=== PATIENT | female | born 1950 | race Caucasian/White ===

== ENCOUNTER 2017-07-16 07:11 | Inpatient (IN) ==
[2017-07-16] MEDS ORDERED: Lidocaine -MPF 4% 5 ML AMPUL ONE (07:25)
[2017-07-16] MEDS ORDERED: Dexamethasone 4 MG/ML VIAL ONE (07:26)
[2017-07-16] MEDS ORDERED: Ondansetron 4 MG/2 ML VIAL ONE (07:26)
[2017-07-16] MEDS ORDERED: Lidocaine -MPF 2% 2 ML VIAL ONE (07:26)
[2017-07-16] MEDS ORDERED: Ethanol\\Acetic Acid\\Na Ace\\Ben 1,000 ML IRRIG.SOLN IR ONE (07:26)
[2017-07-16] MEDS ORDERED: *HR* Succinylcholine 200 MG/10 ML VIAL IVP ONE (07:26)
[2017-07-16] MEDS ORDERED: *HR* FentaNYL (PF) 100 MCG/2 ML VIAL ONE (07:27)
[2017-07-16] MEDS ORDERED: *HR* Midazolam HCl 2 MG/2 ML VIAL ONE (07:27)
[2017-07-16] MEDS ORDERED: *HR* Propofol 200 MG/20 ML VIAL IVP ONE (07:27)
[2017-07-16] MEDS ORDERED: CeFAZolin Syr 2,000MG/20 ML 2,000 MG/20 ML SYRINGE IVPB ONE (07:30)
[2017-07-16] MEDS ORDERED: Albuterol 2.5 MG/3 ML NEBULIZER IH ONE (07:30)
--- NOTE | 2017-07-16 07:41 | Anesthesia Evaluation PreOp ---
Date of Encounter: 07/16/17 Time of Encounter: 07:39 - Past History Planned Operation: Left Total Hip Arthroplasty Cardiac History: Denies any Significant Hx (arthritis, asthma, CVA (History of stroke without residual deficit. ), diabetes, hyperlipidemia, hypertension, myocardial infarction (2000 and 2011), other (VETO on CPAP) Psychiatric history: no psych history - Past Surgical History Surgical History: angioplasty/stent ( Stent x1 in 2000), appendectomy, (x2), cholecystectomy, hysterectomy, knee replacement (Right and Left), other (Open-heart repair for hole in heart and unknown valve.)), DC (2000, 2011), HTN, Hyperlipidemia, Cardiac Surgery ( PFO repair, Valve replacement), Cardiac Stent (2000) Pulmonary History: Asthma, VETO Dx (CPAP setting unknown) FOOD AND BEVERAGE MANAGER History: CVA (2008 slight RUE weakness), TIA (02/2017), Other (Hx suicide attempt, panic attacks) Other Medical History: Diabetes Type II Anesthesia History: No Prior Anesthetic Complications, Past Anesthesia (Cardiac Stent, PFO repair, c/sx2, Left TKR, CTR, Elbow, R. TKR, CEA 2008, EGD, Hernia, Appy, GB, Nose sx) : No Alcohol Use: none Drug use: none Medications and Allergies Albuterol Sulfate 2.5 mg IH Q6H PRN 07/16/17 [History] Albuterol Sulfate [Ventolin Hfa] 2 puff IH Q4H PRN 07/16/17 [History] Amlodipine Besylate [Amlodipine Besylate] 10 mg PO DAILY 07/16/17 [History] Aspirin [Lo-Dose Aspirin EC] 81 mg PO DAILY 07/16/17 [History] Atorvastatin Calcium 80 mg PO HS 07/16/17 [History] Budesonide/Formoterol 160/4.5 [Symbicort 160/4.5] 2 puff IH BID 07/16/17 [ History] Carvedilol [Coreg] 25 mg PO BID 07/16/17 [History] Clopidogrel [Plavix] 75 mg PO DAILY 07/16/17 [History] Dulaglutide [Trulicity] 0.75 mg SQ TH 07/16/17 [History] Duloxetine HCl [Cymbalta] 60 mg PO BID 07/16/17 [History] Famotidine [Pepcid] 40 mg PO HS 07/16/17 [History] Gabapentin [Neurontin] 1,200 mg PO BID 07/16/17 [History] Insulin ASPART [Novolog Flexpen] 0 - 10 unit SQ TIDWM 07/16/17 [History] Insulin Degludec [Tresiba Flextouch U-200] 65 unit SQ HS 07/16/17 [History] Lisinopril [Zestril] 20 mg PO DAILY 07/16/17 [History] Metformin HCl [Metformin HCl ER] 2,000 mg PO DAILY 07/16/17 [History] Montelukast [Singulair] 10 mg PO HS 07/16/17 [History] Tiotropium [place] [Spiriva Respimat] 2 puff PO DAILY 07/16/17 [History] hydroCHLOROthiazide [Hydrochlorothiazide] 50 mg PO DAILY 07/16/17 [History] lamoTRIgine [Lamictal] 50 mg PO DAILY 07/16/17 [History] rOPINIRole [Requip] 1 mg PO HS 07/16/17 [History] 3 Allergy/AdvReac Type Severity Reaction Status Date / Time aloe vera Allergy Rash Verified 04/10/15 17:37 codeine Allergy Hallucinati Verified 04/10/15 17:37 ng sertraline [From Zoloft] Allergy Rash Verified 04/10/15 17:37 Sulfa (Sulfonamide Allergy Rash Verified 04/10/15 17:37 Antibiotics) fluoxetine AdvReac Itching Verified 04/10/15 17:37 promethazine [From Phenergan] AdvReac Nausea Verified 04/10/15 17:37 TAPE Allergy Blister Uncoded 08/05/15 13:18 - Meds/Allergy Pre-op Review Medications Reviewed: Yes Allergies Reviewed: Yes Beta Blockers on Current Med List: Yes If Beta Blockers taken, Date/Time (Last Dose taken): 05:00 07/16/2017 Anesthesia Results - Labs 07/16/17 08:34 Echocardiogram Name: Liz Genesismagdalena Almanza Date of Study: 12/23/2016 EV/EV echocardiogram Impressions: LVEF 50-55%. Normal LV chamber size, wall thickness and function. Atypical septal motion consistent with bundle branch block. Mild left ventricular diastolic dysfunction. Normal right ventricular structure and function. No evidence of PFO with agitated saline contrast. No evidence of pulmonary hypertension. No significant valvular dysfunction. Stress 04/11/15 EF-60% No ischemia Laboratory Tests 02/05/16 09/15/16 07/16/17 14:22 11:23 08:34 WBC 7.2 Hgb 11.5 Hct 34.8 L Plt Count 251 INR 1.0 Sodium 134 L Potassium 4.1 Chloride 96 L Carbon Dioxide 28 BUN 11 Creatinine 0.75 - Imaging EKG: report reviewed (AF, PVC, RBBB, Poss old septal DC) Anesthesia Exam O2 Sat Height 1.52 m Height 1.52 m Height 1.52 m Weight 87.09 kg Weight 87.09 kg Weight 87.09 kg O2 Sat by Pulse Oximetry 97 O2 Sat by Pulse Oximetry 97 Vital Signs Temp Pulse Resp BP Pulse Ox 97.7 F 70 18 130/69 97 07/16/17 07:39 07/16/17 07:39 07/16/17 07:39 07/16/17 07:39 07/16/17 07:39 Blood glucose: 81 NPO (# of Hours): > 8 hrs Pain Scale: 0 - HEENT Pupil (Motor): Pupils equal, EOMI Mallampati: I Teeth: Poor dentition Oral Opening: Greater than 3 - FOOD AND BEVERAGE MANAGER LOC: Oriented FOOD AND BEVERAGE MANAGER Motor: Normal LUE, Normal RLE, Normal LLE, Normal Face, Deficit RUE (slight weakness from CVA 2008) FOOD AND BEVERAGE MANAGER Sensory: Normal: RUE, LUE, RLE, LLE, Face - Cardiac Rhythm: Irregular Murmur: None JVD: No Carotid Bruit: No - Pulmonary Breath Sounds: bilateral Clear Respiratory Effort: Symmetrical - Additional Findings Patient took plavix this morning and ASA 4/26 Anesthesia Assess/Plan ASA Score: 4 Modified Rena Scale for Level of Consciousness: Cooperative, oriented, and tranquil Anesthetic Plan: General Autologous Blood: Yes Monitoring Plan: Standard Monitors Recovery Plan: PACU
[2017-07-16] MEDS: Ringers Solution, Lactated 1,000 ML IVC SCH ×2 (07:52→10:57)
--- NOTE | 2017-07-16 08:33 | History & Physical Report ---
Date of Encounter: 07/16/17 Time of Encounter: 08:33 24 Hour HP Update - Instructions Instructions: If the History and Physical is less than 30 days old and was completed prior to A.M. admission and or procedure and has NOT been updated on calendar day of procedure please complete this update prior to performing procedure. - Update Patient reports changes in Medical Condition: No Changes in examination, assessment, or condition: No Changes in Medication: No Preop tests/diagnostics Reviewed: Yes Surgery Remains Indicated: Yes Consent for Planned Operative Procedure(s) Verified: Yes - Pre-Operative Checklist Preoperative Checklist Indicated: No Prophylactic Antibiotic Ordered: Yes Is VTE Prophylaxis Indicated?: Yes
[2017-07-16 08:55] LABS: Basophils % 0.3 %; Eosinophils # 0.1 K/mcL (0.0-0.6); Eosinophils % 1.9 %; Hematocrit 34.8 % (35.3-44.9); Hemoglobin 11.5 g/dL (11.5-15.4); Immature Granulocytes % 0.3 % (0-4); Lymphocytes # 2.7 K/mcL (0.6-4.6); Lymphocytes % 36.8 %; Mean Corpuscular Volume 87.7 fL (83.0-100.0); Mean Platelet Volume 9.3 fL (9.4-12.4); Monocytes # 0.8 K/mcL (0.0-1.3); Monocytes % 10.7 %; Neutrophils # 3.6 K/mcL (1.6-8.9); Platelet Count 251 K/mcL (140-400); Red Blood Count 3.97 M/mcL (3.82-4.97); Red Cell Distribution Width 13.2 % (11.5-14.5)
[2017-07-16 09:00] LABS: INR 1.1; Prothrombin Time 11.5 Seconds (9.4-12.1)
[2017-07-16] MEDS ORDERED: Acetaminophen IV 1,000 MG/100 ML INFUS..BTL ONE (09:05)
[2017-07-16 09:12] LABS: BUN/Creatinine Ratio 26 (6-26); Blood Urea Nitrogen 16 mg/dL (8-23); Calcium 8.7 mg/dL (8.6-10.3); Carbon Dioxide 29 mEq/L (23-29); Chloride 100 mEq/L (98-107); Glucose 78 mg/dL (70-105); Osmolality,Calculated 280 (280-300); Potassium 4.1 mEq/L (3.5-5.1); Sodium 135 mEq/L (136-145); eGFR For African Americans > 60 (> 60); eGFR For Non-African Americans > 60 (> 60)
--- NOTE | 2017-07-16 09:32 | Discharge Summary ---
Orders not resulted at time of discharge: Pending orders 07/16/17 08:32 Hemoglobin and Hematocrit [HEME] Routine 07/16/17 09:23 Left Hip [XR hip complete LT] [XR] Routine Date of Encounter: 07/19/17 Time of Encounter: 06:51 - Discharge Diagnosis (1) Diabetes Priority: Secondary Status: Chronic Qualifiers: Diabetes mellitus type: type 2 Diabetes mellitus drop wirer insulin use: unspecified fdc insulin use status Diabetes mellitus complication status : with unspecified complications Qualified Code(s): E11.8 - Type 2 diabetes mellitus with unspecified complications (2) CAD (coronary artery disease) Priority: Secondary Status: Chronic Qualifiers: Coronary Disease-Associated Artery/Lesion type: unspecified vessel or lesion type [place] vs. transplanted heart: [place] heart Associated angina: angina presence unspecified Qualified Code(s): I25.10 - Atherosclerotic heart disease of [place] coronary artery without angina pectoris (3) VETO (obstructive sleep apnea) Priority: Secondary Status: Chronic (4) Hypertension Priority: Secondary Status: Chronic Qualifiers: Hypertension type: unspecified Qualified Code(s): I10 - Essential (primary ) hypertension (5) Hyperlipidemia Priority: Secondary Status: Chronic Qualifiers: Hyperlipidemia type: unspecified Qualified Code(s): E78.5 - Hyperlipidemia , unspecified (6) DVT prophylaxis Priority: Secondary Status: Acute (7) History of CVA (cerebrovascular accident) Priority: Secondary Status: Chronic (8) Arthritis of left hip Priority: Primary Status: Chronic (9) Status post total hip replacement, left Priority: Primary Status: Acute (10) Asthma Priority: Secondary Status: Chronic Qualifiers: Asthma severity: unspecified severity Asthma persistence: unspecified Asthma complication type: uncomplicated Qualified Code(s): J45.909 - Unspecified asthma, uncomplicated (11) Acute blood loss anemia Priority: Primary Status: Acute - Hospital Course Hospital course: Ms. Almanza is a 67 year old female Status post total hip replacement. Patient with acute blood loss anemia requiring transfusion. The patient had an uneventful postoperative course. They received antibiotics and physical therapy and were discharged in stable condition. There will follow -up in the office in 2 weeks. - Time Spent with Patient Total time spent providing and/or coordinating discharge services: - Discharge Medications Home Medications: Albuterol Sulfate 2.5 mg IH Q6H PRN 07/16/17 [History] Albuterol Sulfate [Ventolin Hfa] 2 puff IH Q4H PRN 07/16/17 [History] Amlodipine Besylate 10 mg PO DAILY 07/16/17 [History] Aspirin [Lo-Dose Aspirin EC] 81 mg PO DAILY 07/16/17 [History] Atorvastatin Calcium 80 mg PO HS 07/16/17 [History] Budesonide/Formoterol 160/4.5 [Symbicort 160/4.5] 2 puff IH BID 07/16/17 [ History] Carvedilol [Coreg] 25 mg PO BID 07/16/17 [History] Clopidogrel [Plavix] 75 mg PO DAILY 07/16/17 [History] Dulaglutide [Trulicity] 0.75 mg SQ TH 07/16/17 [History] Duloxetine HCl [Cymbalta] 60 mg PO BID 07/16/17 [History] Famotidine [Pepcid] 40 mg PO HS 07/16/17 [History] Gabapentin [Neurontin] 1,200 mg PO BID 07/16/17 [History] Insulin ASPART [Novolog Flexpen] 0 - 10 unit SQ TIDWM 07/16/17 [History] Insulin Degludec [Tresiba Flextouch U-200] 65 unit SQ HS 07/16/17 [History] Lisinopril [Zestril] 20 mg PO DAILY 07/16/17 [History] Metformin HCl [Metformin HCl ER] 2,000 mg PO DAILY 07/16/17 [History] Montelukast [Singulair] 10 mg PO HS 07/16/17 [History] OxyCODONE Immed Rel [Roxicodone 5 MG] 5 mg PO Q4HR PRN 5 Days #20 tablet [Rx] Tiotropium [place] [Spiriva Respimat] 2 puff PO DAILY 07/16/17 [History] hydroCHLOROthiazide [Hydrochlorothiazide] 50 mg PO DAILY 07/16/17 [History] lamoTRIgine [Lamictal] 50 mg PO DAILY 07/16/17 [History] rOPINIRole [Requip] 1 mg PO HS 07/16/17 [History] Allergies/Adverse Reactions: 3 Allergy/AdvReac Type Severity Reaction Status Date / Time aloe vera Allergy Rash Verified 04/10/15 17:37 codeine Allergy Hallucinati Verified 04/10/15 17:37 ng sertraline [From Zoloft] Allergy Rash Verified 04/10/15 17:37 Sulfa (Sulfonamide Allergy Rash Verified 04/10/15 17:37 Antibiotics) fluoxetine AdvReac Itching Verified 04/10/15 17:37 promethazine [From Phenergan] AdvReac Nausea Verified 04/10/15 17:37 TAPE Allergy Blister Uncoded 08/05/15 13:18 Primary care physician: Denise Scanlon MD Labs on day of discharge: Labs from last 24 hours 07/16/17 07/16/17 07/16/17 08:34 08:34 08:34 WBC 7.2 RBC 3.97 Hgb 11.5 Hct 34.8 L MCV 87.7 MCH 29.0 MCHC 33.0 RDW 13.2 Plt Count 251 MPV 9.3 L Immature Gran % 0.3 Seg Neutrophils % 50.0 Lymphocytes % 36.8 Monocytes % 10.7 Eosinophils % 1.9 Basophils % 0.3 Neutrophils # 3.6 Lymphocytes # 2.7 Monocytes # 0.8 Eosinophils # 0.1 Basophils # 0.0 PT 11.5 INR 1.1 Sodium 135 L Potassium 4.1 Chloride 100 Carbon Dioxide 29 BUN 16 Creatinine 0.61 Est GFR ( Amer) > 60 Est GFR (Non-Af Amer) > 60 BUN/Creatinine Ratio 26 Glucose 78 Calculated Osmolality 280 Calcium 8.7 - Patient Status Disposition: Transfer Inpatient Rehab Fac Condition: Good Functional capacity at discharge: uses cane/walker Overall status at discharge: patient is progressing back to baseline - Discharge Instructions Follow Up With: Denise Scanlon MD [Primary Care Provider] -
[2017-07-16] MEDS ORDERED: *HR* Phenylephrine 10 MG/ML VIAL ONE (10:27)
[2017-07-16] MEDS ORDERED: *HR* HYDROmorphone (PF) 1 MG/ML SYRINGE IVP PRN (10:42)
[2017-07-16] MEDS ORDERED: *HR* Labetalol 20 MG/4 ML SYRINGE IVP PRN (10:42)
[2017-07-16] MEDS ORDERED: Ondansetron 4 MG/2 ML VIAL IVP ONE (10:42)
[2017-07-16] MEDS ORDERED: Dexamethasone 4 MG/ML VIAL IVP ONE (10:42)
--- NOTE | 2017-07-16 11:32 | Orthopedic Operative Note ---
Date of procedure: 07/16/17 Pre-op diagnosis: Left hip arthritis Post-op diagnosis: same Procedure: Procedure: Left Total Hip Replacment robotic-assisted Estimated blood loss: 200 cc Hardware: Metal and polyethylene replacement. Omar DM Cup: 48 cup Femoral 7 size stem Head: +3/22 head with Charis Procedural Notes: Grade 4 arthritic changes femoral head acetabular socket, procedure performed with robotic assistance. Patient 3 mm longer operative side as measured by CT Operative procedure: The patient was brought to the operating room and placed on the operating room table. After general anesthesia was administered the patient was placed in the lateral decubitus position with the operative leg up. All pressure points were padded appropriately and the head was stabilized in the neutral position. The operative extremity was prepped and draped in the sterile surgical fashion patient received IV antibiotic prior to skin incision. 3 Steinmann pins were placed in the iliac crest 3 cm proximal to the anterior superior iliac spine this was for the robotic-assisted sensor. This was done through a small 2 cm incision. A standard posterior approach is made to the operative hip, the incision was made through the skin and subcutaneous tissue hemostasis was obtained with Bovie cautery. Using careful sharp dissection the fascia was identified and incised exposing the external rotators. The femoral checkpoint was placed leg length was measured at this time utilizing robotic assistance. The external rotators were released off the greater trochanter and tagged with # 2 FiberWire suture. The capsule was T'd open and the hip was brought into internal rotation. Patient noted to have grade 4 arthritic changes femoral head. The femoral neck cut was made at the appropriate level roughly Xmm proximal to the lesser trochanter aced on preoperative templating. An anterior capsulotomy was performed for the anterior retractor. Soft tissues removed from the acetabulum. Patient noted to have grade 4 arthritic changes acetabulum. The acetabulum checkpoint was placed confirmed. The acetabulum was then mapped with robotic assistance. Based on the preoperative plan the acetabulum was reamed in one step with a 47 reamer. The 48 acetabulum was impacted with robotic assistance and 39 degrees of abduction and 21 degrees of anteversion. The hip was brought back in to internal rotation and prepared with the dry box tender followed by the canal finder followed by the reaming process to a size 7/ 8 broaching process in 20 degrees anteversion. It was broached up to the appropriate size 7. Trial reduction revealed leg lengths close to normal. The femoral implant was impacted in place in 20 degrees of anteversion. Trial reduction found the hip to be stable with 3 head and Charis. The trials were removed and the real implants were impacted in place. The hip was reduced, patient had robotic confirmed leg length of 3 mm longer than the contralateral side. The hip had excellent stability with forward flexion to 90 degrees adduction of 30 degrees and internal rotation of 60 degrees. The hip had no shuck. The hips after 2 minutes with a antibacterial solution. It was irrigated out with 2 L of pulse irrigation. The checkpoints were removed, Steinmann pins were removed. The deep tissue was irrigated and closed deep with #1 PDS suture superficially with 0 PDS suture and skin was closed with Dermabond and zip tie. The patient was placed in a sterile dressing and abduction pillow. The patient was extubated and transferred to the recovery room in stable condition. Anesthesia: GETA Surgeon: Musa Armando Was there an customer relations assistant present: No Estimated blood loss (cc): 200 Condition: stable Disposition: PACU
--- NOTE | 2017-07-16 12:00 | Anesthesia Evaluation Post Op ---
Date of Encounter: 07/16/17 Time of Encounter: 11:58 - Vital Signs Vital Signs: Vital Signs/O2 Sat, Most Current Temp Pulse Resp BP Pulse Ox 97.2 F L 90 14 166/80 95 07/16/17 11:34 07/16/17 11:54 07/16/17 11:54 07/16/17 11:54 07/16/17 11:54 - Lungs Lungs: Clear Ascult./Percussion - Airway Airway: Non-obstructed - Cardiovascular Regular Rate - Mental Status Mental Status: Alert & Oriented, Answers Appropriately - Pain Pain Scale: 0 Pain Scale used: Numeric (1 - 10) - Nausea Vomiting Nausea Vomiting: Present - Hydration Hydration: Tolerates oral liquids, Has not voided - Discharge PostOp Status: Transfer Patient to floor
[2017-07-16] MEDS ORDERED: Temazepam 15 MG CAPSULE PO PRN (12:20)
[2017-07-16] MEDS ORDERED: Naloxone 0.4 MG/ML INJ IVP PRN (12:20)
[2017-07-16] MEDS ORDERED: Ondansetron 4 MG/2 ML VIAL IVP PRN (12:20)
[2017-07-16] MEDS ORDERED: MOM Conc 10 ML UD.LIQ PO PRN (12:20)
[2017-07-16] MEDS ORDERED: Sennosides 8.6 MG TABLET PO PRN (12:20)
[2017-07-16] MEDS ORDERED: Ringers Solution, Lactated 1,000 ML IVC SCH ×2 (12:20→16:39)
[2017-07-16] MEDS: *HR* OxyCODONE/APAP 5/325 TABLET PO PRN ×2 (12:53→20:58)
[2017-07-16 13:07] LABS: Hematocrit 32.3 % (35.3-44.9); Hemoglobin 10.5 g/dL (11.5-15.4)
--- NOTE | 2017-07-16 13:26 | Physician Discharge Referral ---
ExtendedCare Referral Info Transfer To: [facility] Provider in Charge: Provider in Charge after Transfer: PCP Institutional Level of Care: Skilled - Diagnosis (1) CAD (coronary artery disease) Priority: Primary Status: Chronic (2) Diabetes Priority: Primary Status: Chronic (3) VETO (obstructive sleep apnea) Status: Chronic (4) Hypertension Status: Chronic (5) Hyperlipidemia Status: Chronic (6) Asthma Status: Chronic (7) History of CVA (cerebrovascular accident) Status: Chronic (8) Arthritis of left hip Status: Chronic (9) Status post total hip replacement, left Status: Acute Expected Duration of Placement: < 30 days - Transfer Medications Home Medications: Albuterol Sulfate 2.5 mg IH Q6H PRN 07/16/17 [History] Albuterol Sulfate [Ventolin Hfa] 2 puff IH Q4H PRN 07/16/17 [History] Amlodipine Besylate 10 mg PO DAILY 07/16/17 [History] Aspirin [Lo-Dose Aspirin EC] 81 mg PO DAILY 07/16/17 [History] Atorvastatin Calcium 80 mg PO HS 07/16/17 [History] Budesonide/Formoterol 160/4.5 [Symbicort 160/4.5] 2 puff IH BID 07/16/17 [ History] Carvedilol [Coreg] 25 mg PO BID 07/16/17 [History] Clopidogrel [Plavix] 75 mg PO DAILY 07/16/17 [History] Dulaglutide [Trulicity] 0.75 mg SQ TH 07/16/17 [History] Duloxetine HCl [Cymbalta] 60 mg PO BID 07/16/17 [History] Famotidine [Pepcid] 40 mg PO HS 07/16/17 [History] Gabapentin [Neurontin] 1,200 mg PO BID 07/16/17 [History] Insulin ASPART [Novolog Flexpen] 0 - 10 unit SQ TIDWM 07/16/17 [History] Insulin Degludec [Tresiba Flextouch U-200] 65 unit SQ HS 07/16/17 [History] Lisinopril [Zestril] 20 mg PO DAILY 07/16/17 [History] Metformin HCl [Metformin HCl ER] 2,000 mg PO DAILY 07/16/17 [History] Montelukast [Singulair] 10 mg PO HS 07/16/17 [History] OxyCODONE Immed Rel [Roxicodone 5 MG] 5 mg PO Q4HR PRN 5 Days #20 tablet [Rx] Tiotropium [place] [Spiriva Respimat] 2 puff PO DAILY 07/16/17 [History] hydroCHLOROthiazide [Hydrochlorothiazide] 50 mg PO DAILY 07/16/17 [History] lamoTRIgine [Lamictal] 50 mg PO DAILY 07/16/17 [History] rOPINIRole [Requip] 1 mg PO HS 07/16/17 [History] Allergies/Adverse Reactions: 3 Allergy/AdvReac Type Severity Reaction Status Date / Time aloe vera Allergy Rash Verified 04/10/15 17:37 codeine Allergy Hallucinati Verified 04/10/15 17:37 ng sertraline [From Zoloft] Allergy Rash Verified 04/10/15 17:37 Sulfa (Sulfonamide Allergy Rash Verified 04/10/15 17:37 Antibiotics) fluoxetine AdvReac Itching Verified 04/10/15 17:37 promethazine [From Phenergan] AdvReac Nausea Verified 04/10/15 17:37 TAPE Allergy Blister Uncoded 08/05/15 13:18 - Respiratory Orders None Smoking Cessation: Smoking cessation has been advised. For more information, call the [place] Tobacco Quit Line at 9-622-ZSLH-NOW. - Mobility Orders Chair, Ambulate - Rehabiliation Orders Rehab Potential: Good Rehab Orders: ROM Exercises, Evaluation for Physical Therapy, Evaluation for Occupational Therapy - Treatments Skin tear care topically daily PRN per policy List/Other: Opsite dressing, leave intact until first post-operative visit. If dressing becomes >50% saturated, contact office, remove dressing and place appropriate dressing in its place. Do not allow for dressing to get wet. Zipline/Nichelle in place, plan to remove at post-operative day #14-16. Total Joint Precautions x 6 weeks Apply cold therapy wrap 3-6x/day for 20 minutes at a time. Encourage ambulation throughout the day Use Incentive spirometer 10x/hour. Elevate affected extremity above heart as tolerated. Brace: Wear hip abductor brace at night x 6 weeks.~ - Diet Orders Regular, Cardiac CERTIFICATION: I certify that the transfer of the above named patient to an Extended Care Facility is necessary for the continuing treatment of the diagnosis listed. The above information is true and accurate reflection of patient's current condition. Confidential - Redisclosure prohibited without a patient's written consent.
--- NOTE | 2017-07-16 13:32 | Physician Discharge Referral ---
Home Health/Hosp Referral Info Provider in Charge Post Discharge: PCP - Diagnosis (1) CAD (coronary artery disease) Priority: Primary Status: Chronic (2) Diabetes Priority: Primary Status: Chronic (3) VETO (obstructive sleep apnea) Status: Chronic (4) Hypertension Status: Chronic (5) Hyperlipidemia Status: Chronic (6) Asthma Status: Chronic (7) History of CVA (cerebrovascular accident) Status: Chronic (8) Arthritis of left hip Status: Chronic (9) Status post total hip replacement, left Status: Acute - Respiratory Orders Smoking Cessation: Smoking cessation has been advised. For more information, call the [place] Tobacco Quit Line at 9-688-KZBA-NOW. - Diet/Nutrition Diet/Nutrition Orders: Regular - Activity Activity Orders: Up ad estefanía, Ambulate, Chair, Walker - Services Needed Following services are medically necessary services: Nursing, Home Health Aide, Physical Therapy, Occupational Therapy Home Care Orders: Opsite dressing, leave intact until first post-operative visit. If dressing becomes >50% saturated, contact office, remove dressing and place appropriate dressing in its place. Do not allow for dressing to get wet. Zipline/[place] in place, plan to remove at post-operative day #14-16. Total Joint Precautions x 6 weeks Apply cold therapy wrap 3-6x/day for 20 minutes at a time. Encourage ambulation throughout the day Use Incentive spirometer 10x/hour. Elevate affected extremity above heart as tolerated. Brace: Wear hip abductor brace at night x 6 weeks.~ - Transfer Medications Home Medications: Albuterol Sulfate 2.5 mg IH Q6H PRN 07/16/17 [History] Albuterol Sulfate [Ventolin Hfa] 2 puff IH Q4H PRN 07/16/17 [History] Amlodipine Besylate 10 mg PO DAILY 07/16/17 [History] Aspirin [Lo-Dose Aspirin EC] 81 mg PO DAILY 07/16/17 [History] Atorvastatin Calcium 80 mg PO HS 07/16/17 [History] Budesonide/Formoterol 160/4.5 [Symbicort 160/4.5] 2 puff IH BID 07/16/17 [ History] Carvedilol [Coreg] 25 mg PO BID 07/16/17 [History] Clopidogrel [Plavix] 75 mg PO DAILY 07/16/17 [History] Dulaglutide [Trulicity] 0.75 mg SQ TH 07/16/17 [History] Duloxetine HCl [Cymbalta] 60 mg PO BID 07/16/17 [History] Famotidine [Pepcid] 40 mg PO HS 07/16/17 [History] Gabapentin [Neurontin] 1,200 mg PO BID 07/16/17 [History] Insulin ASPART [Novolog Flexpen] 0 - 10 unit SQ TIDWM 07/16/17 [History] Insulin Degludec [Tresiba Flextouch U-200] 65 unit SQ HS 07/16/17 [History] Lisinopril [Zestril] 20 mg PO DAILY 07/16/17 [History] Metformin HCl [Metformin HCl ER] 2,000 mg PO DAILY 07/16/17 [History] Montelukast [Singulair] 10 mg PO HS 07/16/17 [History] OxyCODONE Immed Rel [Roxicodone 5 MG] 5 mg PO Q4HR PRN 5 Days #20 tablet [Rx] Tiotropium [place] [Spiriva Respimat] 2 puff PO DAILY 07/16/17 [History] hydroCHLOROthiazide [Hydrochlorothiazide] 50 mg PO DAILY 07/16/17 [History] lamoTRIgine [Lamictal] 50 mg PO DAILY 07/16/17 [History] rOPINIRole [Requip] 1 mg PO HS 07/16/17 [History] Allergies/Adverse Reactions: 3 Allergy/AdvReac Type Severity Reaction Status Date / Time aloe vera Allergy Rash Verified 04/10/15 17:37 codeine Allergy Hallucinati Verified 04/10/15 17:37 ng sertraline [From Zoloft] Allergy Rash Verified 04/10/15 17:37 Sulfa (Sulfonamide Allergy Rash Verified 04/10/15 17:37 Antibiotics) fluoxetine AdvReac Itching Verified 04/10/15 17:37 promethazine [From Phenergan] AdvReac Nausea Verified 04/10/15 17:37 TAPE Allergy Blister Uncoded 08/05/15 13:18 Certification: Further, I certify that my clinical findings support that this patient is homebound (i.e. absences from home require considerable and taxing effort and are for medical reasons or moravian services or infrequently or short duration when for other reasons) because: Homebound Reason: Post-surgery restriction and or conditions limit ability to leave home Attestation: My signature below is to certify that this patient is under my care and that I, or nurse practitioner, or a physician's library circulation assistant working with me, has a face-to -face encounter with this patient.
[2017-07-16] MEDS: traMADol 50 MG TABLET PO PRN (14:49)
[2017-07-16] MEDS ORDERED: Albuterol 2.5 MG/3 ML NEBULIZER IH PRN (16:00)
[2017-07-16] MEDS: CeFAZolin Pre 2,000 MG/100 ML 2,000 MG/100 ML BAG IVPB SCH (16:33)
[2017-07-16] MEDS: Ascorbic Acid 500 MG TABLET PO SCH (16:34)
[2017-07-16] MEDS ORDERED: *HR* Enoxaparin 30 MG/0.3 ML SYRINGE SQ SCH ×2 (18:00)
[2017-07-16] MEDS: Famotidine 20 MG TABLET PO SCH (20:43)
[2017-07-16] MEDS: Gabapentin 400 MG CAPSULE PO SCH (20:44)
[2017-07-16] MEDS: rOPINIRole 1 MG TABLET PO SCH (20:44)
[2017-07-16] MEDS: Budesonide/Formoterol 160/4.5 MDI IH SCH (20:53)
[2017-07-16] MEDS: Insulin DETEMIR 100 UNIT/ML X5UNITS SQ SCH (20:58)
[2017-07-16] MEDS: *HR* OxyCODONE Immed Rel 5 MG TABLET PO PRN (23:53)
[2017-07-17] MEDS: CeFAZolin Pre 2,000 MG/100 ML 2,000 MG/100 ML BAG IVPB SCH (00:07)
[2017-07-17 01:36] LABS: Hematocrit 26.3 % (35.3-44.9)
[2017-07-17 01:55] LABS: Hemoglobin 8.6 g/dL (11.5-15.4)
[2017-07-17 01:59] LABS: BUN/Creatinine Ratio 23 (6-26); Blood Urea Nitrogen 19 mg/dL (8-23); Calcium 8.2 mg/dL (8.6-10.3); Carbon Dioxide 26 mEq/L (23-29); Chloride 97 mEq/L (98-107); Glucose 324 mg/dL (70-105); Osmolality,Calculated 285 (280-300); Potassium 4.6 mEq/L (3.5-5.1); Sodium 130 mEq/L (136-145); eGFR For African Americans > 60 (> 60); eGFR For Non-African Americans > 60 (> 60)
[2017-07-17] MEDS: Lisinopril 20 MG TABLET PO SCH (08:46)
[2017-07-17] MEDS: lamoTRIgine 25 MG TABLET PO SCH (08:47)
[2017-07-17] MEDS: Aspirin Enteric Coated 81 MG Tablet PO SCH (08:47)
[2017-07-17] MEDS: amLODIPine 5 MG TABLET PO SCH (08:48)
[2017-07-17] MEDS: Gabapentin 400 MG CAPSULE PO SCH ×2 (08:48→22:04)
[2017-07-17] MEDS: hydroCHLOROthiazide 25 MG TABLET PO SCH (08:49)
[2017-07-17] MEDS: Ascorbic Acid 500 MG TABLET PO SCH ×2 (08:49→17:16)
[2017-07-17] MEDS: Multivit/Ca/Min/Fe/FA 1 TAB TABLET PO SCH (08:49)
[2017-07-17] MEDS: *HR* Metformin 500 MG TABLET PO SCH ×2 (08:49→17:17)
[2017-07-17] MEDS: *HR* OxyCODONE Immed Rel 5 MG TABLET PO PRN (09:28)
[2017-07-17] MEDS ORDERED: D5% in Water 1,000 ML IVC PRN (10:17)
[2017-07-17] MEDS ORDERED: *HR* Dextrose 50 % in Water (Syg) 50 ML SYRINGE IVP PRN (10:17)
[2017-07-17] MEDS ORDERED: Dextrose Gel 15 GM/37.5 ML TUBE PO PRN ×2 (10:17)
[2017-07-17] MEDS: (Tiotropium Bromide [Spiriva Respimat] 2 PUFF) PO SCH (10:41)
[2017-07-17] MEDS: Insulin LISPRO 300 UNITS/3 ML VIAL SQ SCH ×4 (10:42→22:08)
--- NOTE | 2017-07-17 11:40 | Orthopedics Progress Note ---
Date of Encounter: 07/17/17 Time of Encounter: 11:38 Subjective Interval history: Doing well s/p L CHRIS. Pain well controlled. Denies SOB or CP. Denies fevers or chills AFVSS Hgb 8.6 GEN - NAD LLE: Dress c/d/i DNVI with motor and sensation intact on operative extremity No calf pain POD#1 s/p L CHRIS -Doing well, mobilize with PT -Plan for d/c to ECF likely Wednesday Objective Vital signs: Vital Signs Temp Pulse Resp BP Pulse Ox 07/17/17 10:34 98.0 F 84 18 136/67 98 07/17/17 04:51 98.0 F 91 15 109/64 96 07/16/17 23:02 98.8 F 84 14 124/71 96 07/16/17 20:53 15 94 07/16/17 20:35 96 07/16/17 19:42 97.8 F 79 14 123/70 98 07/16/17 15:58 97.5 F L 80 17 86/58 97 07/16/17 13:28 98.0 F 82 16 117/92 97 07/16/17 12:55 97.8 F 78 16 148/71 93 07/16/17 12:28 97.5 F L 83 16 123/72 90 07/16/17 12:04 97.9 F 85 14 148/92 96 07/16/17 11:54 90 14 166/80 95 07/16/17 11:44 84 13 154/78 95 Intake and Output 07/16/17 07/17/17 07/17/17 23:59 07:59 15:59 Intake Total 500 / 500 100 / 100 240 / 240 Output Total 150 / 150 200 / 200 900 / 900 Balance 350 / 350 -100 / -100 -660 / -660 Intake: IV Fluids 100 / 100 Ancef Premix 2,000 MG/100 ML 2, 100 / 100 000 mg In 100 ml @ 200 mls/hr IVPB Q8HR [facility] Rx#:[id number] Oral 400 / 400 100 / 100 240 / 240 Output: Urine 150 / 150 200 / 200 900 / 900 Other: Meal Breakfast Percent of Meal Consumed 100% Weight 97 kg Blood Glucose* 294 265 Patient Weight 07/17/17 23:59 Weight 97 kg - Labs CBC & BMP: 07/17/17 01:22 04/28/18 01:22 Labs: Abnormal lab results Hgb 8.6 g/dL (11.5-15.4) L D 07/17/17 01:22 Hct 26.3 % (35.3-44.9) L 07/17/17 01:22 MPV 9.3 fL (9.4-12.4) L 07/16/17 08:34 Sodium 130 mEq/L (136-145) L 07/17/17 01:22 Chloride 97 mEq/L (98-107) L 07/17/17 01:22 Glucose 324 mg/dL (70-105) H 07/17/17 01:22 POC Glucose 265 mg/dL (70-99) H 07/17/17 07:24 Calcium 8.2 mg/dL (8.6-10.3) L 07/17/17 01:22 - VTE Documentation of Mechanical Device: Venous foot pump, device Consult Discharge Plan - Plan Referrals: Denise Scanlon MD [Primary Care Provider] -
[2017-07-17] MEDS: Budesonide/Formoterol 160/4.5 MDI IH SCH ×2 (11:49→21:00)
[2017-07-17] MEDS: Insulin DETEMIR 100 UNIT/ML X5UNITS SQ SCH (22:03)
[2017-07-17] MEDS: Famotidine 20 MG TABLET PO SCH (22:04)
[2017-07-17] MEDS: rOPINIRole 1 MG TABLET PO SCH (22:04)
[2017-07-17] MEDS: traMADol 50 MG TABLET PO PRN (22:04)
[2017-07-18 01:17] LABS: Hematocrit 22.8 % (35.3-44.9); Hemoglobin 7.4 g/dL (11.5-15.4)
[2017-07-18 01:39] LABS: BUN/Creatinine Ratio 23 (6-26); Blood Urea Nitrogen 18 mg/dL (8-23); Carbon Dioxide 26 mEq/L (23-29); Chloride 94 mEq/L (98-107); Glucose 163 mg/dL (70-105); Osmolality,Calculated 269 (280-300); Sodium 127 mEq/L (136-145); eGFR For African Americans > 60 (> 60); eGFR For Non-African Americans > 60 (> 60)
[2017-07-18] MEDS ORDERED: Furosemide 20 MG/2 ML VIAL IVP PRN (07:43)
[2017-07-18] MEDS: Insulin LISPRO 300 UNITS/3 ML VIAL SQ SCH ×4 (08:28→22:38)
[2017-07-18] MEDS: *HR* OxyCODONE Immed Rel 5 MG TABLET PO PRN (08:39)
[2017-07-18] MEDS: hydroCHLOROthiazide 25 MG TABLET PO SCH (08:39)
[2017-07-18] MEDS: Gabapentin 400 MG CAPSULE PO SCH ×2 (08:39→20:00)
[2017-07-18] MEDS: *HR* Metformin 500 MG TABLET PO SCH ×2 (08:39→17:16)
[2017-07-18] MEDS: Ascorbic Acid 500 MG TABLET PO SCH ×2 (08:40→17:16)
[2017-07-18] MEDS: amLODIPine 5 MG TABLET PO SCH (08:40)
[2017-07-18] MEDS: lamoTRIgine 25 MG TABLET PO SCH (08:40)
[2017-07-18] MEDS: Aspirin Enteric Coated 81 MG Tablet PO SCH (08:40)
[2017-07-18] MEDS: Lisinopril 20 MG TABLET PO SCH (08:40)
[2017-07-18] MEDS: Multivit/Ca/Min/Fe/FA 1 TAB TABLET PO SCH (08:40)
[2017-07-18] MEDS: (Tiotropium Bromide [Spiriva Respimat] 2 PUFF) PO SCH (08:41)
[2017-07-18] MEDS: Budesonide/Formoterol 160/4.5 MDI IH SCH ×2 (10:11→20:30)
[2017-07-18] MEDS ORDERED: 0.9 % Sodium Chloride 250 ML ONE ×2 (10:43→14:16)
--- NOTE | 2017-07-18 11:11 | Orthopedics Progress Note ---
Date of Encounter: 07/18/17 Time of Encounter: 11:10 Subjective Interval history: Doing well s/p L CHRIS. Pain well controlled. Denies SOB or CP. Denies fevers or chills AFVSS Hgb 7.4 GEN - NAD LLE: Dress c/d/i DNVI with motor and sensation intact on operative extremity No calf pain POD#2 s/p L CHRIS -Doing well, mobilize with PT -2 u PRBC -Plan for d/c to ECF Wednesday Objective Vital signs: Vital Signs Temp Pulse Resp BP Pulse Ox 07/18/17 11:02 99.6 F 86 18 120/53 07/18/17 10:45 110.6 F H 92 20 106/65 07/18/17 10:11 18 96 07/18/17 07:06 99.5 F 85 18 130/72 94 07/18/17 05:35 16 89 07/18/17 02:02 98.1 F 84 14 114/69 95 07/17/17 21:33 98.3 F 80 16 110/68 95 07/17/17 21:06 16 97 07/17/17 20:00 95 07/17/17 15:08 98.0 F 107 18 122/56 90 07/17/17 11:52 18 99 Intake and Output 07/17/17 07/18/17 07/18/17 23:59 07:59 15:59 Intake Total 200 / 200 100 / 100 Output Total 750 / 750 650 / 650 900 / 900 Balance -550 / -550 -650 / -650 -800 / -800 Intake: IV Fluids 100 / 100 Ancef Premix 2,000 MG/100 ML 2, 100 / 100 000 mg In 100 ml @ 200 mls/hr IVPB Q8HR [facility] Rx#:[id number] Oral 200 / 200 Blood Product 0 / 0 Rbcs Leuko Poor As-1 Unit 0 / 0 [id number] Output: Urine 750 / 750 650 / 650 900 / 900 Other: Blood Glucose* 167 106 - Labs CBC & BMP: 07/18/17 00:39 07/18/17 00:39 Labs: Abnormal lab results Hgb 7.4 g/dL (11.5-15.4) L 07/18/17 00:39 Hct 22.8 % (35.3-44.9) L 07/18/17 00:39 MPV 9.3 fL (9.4-12.4) L 07/16/17 08:34 Sodium 127 mEq/L (136-145) L 07/18/17 00:39 Chloride 94 mEq/L (98-107) L 07/18/17 00:39 Glucose 163 mg/dL (70-105) H 07/18/17 00:39 POC Glucose 106 mg/dL (70-99) H 07/18/17 08:04 Calculated Osmolality 269 (280-300) L 07/18/17 00:39 Calcium 8.0 mg/dL (8.6-10.3) L 07/18/17 00:39 - VTE Documentation of Mechanical Device: Venous foot pump, device Consult Discharge Plan - Plan Referrals: Denise Scanlon MD [Primary Care Provider] -
[2017-07-18] MEDS: Famotidine 20 MG TABLET PO SCH (20:00)
[2017-07-18] MEDS: rOPINIRole 1 MG TABLET PO SCH (20:01)
[2017-07-18] MEDS: Insulin DETEMIR 100 UNIT/ML X5UNITS SQ SCH (22:39)
--- NOTE | 2017-07-19 06:53 | Orthopedics Progress Note ---
Date of Encounter: 07/19/17 Time of Encounter: 06:53 - Assessment and Plan (1) Diabetes Current Visit: No Status: Chronic Qualifiers: Diabetes mellitus type: type 2 Diabetes mellitus extermination inspector insulin use: unspecified extermination inspector insulin use status Diabetes mellitus complication status : with unspecified complications Qualified Code(s): E11.8 - Type 2 diabetes mellitus with unspecified complications (2) CAD (coronary artery disease) Current Visit: No Status: Chronic Qualifiers: Coronary Disease-Associated Artery/Lesion type: unspecified vessel or lesion type [place] vs. transplanted heart: [place] heart Associated angina: angina presence unspecified Qualified Code(s): I25.10 - Atherosclerotic heart disease of [place] coronary artery without angina pectoris (3) VETO (obstructive sleep apnea) Current Visit: No Status: Chronic (4) Hypertension Current Visit: No Status: Chronic Qualifiers: Hypertension type: unspecified Qualified Code(s): I10 - Essential (primary ) hypertension (5) Hyperlipidemia Current Visit: No Status: Chronic Qualifiers: Hyperlipidemia type: unspecified Qualified Code(s): E78.5 - Hyperlipidemia , unspecified (6) DVT prophylaxis Current Visit: No Status: Acute (7) History of CVA (cerebrovascular accident) Current Visit: No Status: Chronic (8) Arthritis of left hip Current Visit: Yes Status: Chronic (9) Status post total hip replacement, left Current Visit: Yes Status: Acute (10) Asthma Current Visit: No Status: Chronic Qualifiers: Asthma severity: unspecified severity Asthma persistence: unspecified Asthma complication type: uncomplicated Qualified Code(s): J45.909 - Unspecified asthma, uncomplicated (11) Acute blood loss anemia Current Visit: Yes Status: Acute Subjective Interval history: Patient was seen this morning doing well without complaints. Afebrile vital signs stable. Operative extremity: Neurovascularly intact Dressing clean dry and intact Calves nontender Assessment and plan: Continue with postoperative care Discharged today Objective Vital signs: Vital Signs Temp Pulse Resp BP Pulse Ox 07/18/17 23:36 98.3 F 90 18 137/73 94 07/18/17 20:30 18 97 07/18/17 20:10 97 07/18/17 18:58 98.6 F 85 16 130/64 93 07/18/17 17:01 100 F H 91 14 123/71 96 07/18/17 14:37 100.2 F H 86 16 130/75 96 07/18/17 14:34 97 07/18/17 14:20 101.1 F H 89 16 117/70 97 07/18/17 13:35 100.6 F H 85 16 144/68 95 07/18/17 11:02 99.6 F 86 18 120/53 07/18/17 10:45 100.6 F H 92 20 106/65 07/18/17 10:11 18 96 07/18/17 07:06 99.5 F 85 18 130/72 94 Intake and Output 07/18/17 07/18/17 07/19/17 15:59 23:59 07:59 Intake Total 640 / 640 511 / 511 Output Total 1100 / 1100 500 / 500 Balance -460 / -460 Intake: IV Fluids 100 / 100 0.9 % Sodium Chloride 250 ML @ 0 / 0 0 mls/hr .ROUTE .[facility] Rx #:[id number] Ancef Premix 2,000 MG/100 ML 2, 100 / 100 000 mg In 100 ml @ 200 mls/hr IVPB Q8HR [facility] Rx#:[id number] Oral 240 / 240 240 / 240 Blood Product 300 / 300 271 / 271 Rbcs Leuko Poor As-1 Unit 300 / 300 [id number] Rbcs Leuko Poor As-1 Unit 0 / 0 271 / 271 [id number] Output: Urine 1100 / 1100 500 / 500 Other: Meal Lunch Dinner Percent of Meal Consumed 100% 100% # Voids 1 Blood Glucose* 213 207 - Labs CBC & BMP: 07/18/17 00:39 07/18/17 00:39 Labs: Abnormal lab results Hgb 7.4 g/dL (11.5-15.4) L 07/18/17 00:39 Hct 22.8 % (35.3-44.9) L 07/18/17 00:39 MPV 9.3 fL (9.4-12.4) L 07/16/17 08:34 Sodium 127 mEq/L (136-145) L 07/18/17 00:39 Chloride 94 mEq/L (98-107) L 07/18/17 00:39 Glucose 163 mg/dL (70-105) H 07/18/17 00:39 POC Glucose 207 mg/dL (70-99) H 07/18/17 19:54 Calculated Osmolality 269 (280-300) L 07/18/17 00:39 Calcium 8.0 mg/dL (8.6-10.3) L 07/18/17 00:39 - VTE Documentation of Mechanical Device: Venous foot pump, device Consult Discharge Plan - Plan Referrals: Denise Scanlon MD [Primary Care Provider] -
[2017-07-19 07:02] LABS: Hematocrit 27.2 % (35.3-44.9)
[2017-07-19 07:16] LABS: Hemoglobin 9.2 g/dL (11.5-15.4)
[2017-07-19] MEDS: Insulin LISPRO 300 UNITS/3 ML VIAL SQ SCH ×3 (08:20→17:14)
[2017-07-19] MEDS: Gabapentin 400 MG CAPSULE PO SCH (08:46)
[2017-07-19] MEDS: hydroCHLOROthiazide 25 MG TABLET PO SCH (08:46)
[2017-07-19] MEDS: Multivit/Ca/Min/Fe/FA 1 TAB TABLET PO SCH (08:47)
[2017-07-19] MEDS: Ascorbic Acid 500 MG TABLET PO SCH ×2 (08:47→17:14)
[2017-07-19] MEDS: amLODIPine 5 MG TABLET PO SCH (08:47)
[2017-07-19] MEDS: lamoTRIgine 25 MG TABLET PO SCH (08:47)
[2017-07-19] MEDS: Lisinopril 20 MG TABLET PO SCH (08:47)
[2017-07-19] MEDS: *HR* Metformin 500 MG TABLET PO SCH ×2 (08:48→17:13)
[2017-07-19] MEDS: Aspirin Enteric Coated 81 MG Tablet PO SCH (08:52)
[2017-07-19] MEDS: Budesonide/Formoterol 160/4.5 MDI IH SCH (10:59)
[2017-07-19 15:25] VITALS: BP 148/76
[2017-07-19] MEDS: *HR* OxyCODONE Immed Rel 5 MG TABLET PO PRN (15:32)
[2017-07-22] MEDS ORDERED: (Dulaglutide [Trulicity] 0.75 MG) SQ SCH (09:27)
== END 2017-07-19 18:25 | DRG 470 ==
LOC: SAMDAY 07:11 → 3NENU 12:14
PROVIDERS: ADMIT Orthopaedic Surgery; ATTEND Orthopaedic Surgery

== ENCOUNTER 2019-02-04 18:48 | Observation (INO) ==
[2019-02-04] MEDS ORDERED: Ipratropium/Albuterol Neb 3 ML IH ONE (18:58)
[2019-02-04] MEDS ORDERED: predniSONE 20 MG TABLET PO ONE (18:59)
[2019-02-04 19:40] LABS: Basophils % 0.2 %; Eosinophils # 0.1 K/mcL (0.0-0.6); Eosinophils % 1.2 %; Hematocrit 37.2 % (35.3-44.9); Hemoglobin 12.2 g/dL (11.5-15.4); Immature Granulocytes % 0.5 % (0-4); Lymphocytes # 2.6 K/mcL (0.6-4.6); Lymphocytes % 25.6 %; Mean Corpuscular HGB Conc 32.8 g/dL (31.6-35.5); Mean Corpuscular Volume 94.7 fL (83.0-100.0); Mean Platelet Volume 9.4 fL (9.4-12.4); Monocytes # 0.9 K/mcL (0.0-1.3); Monocytes % 8.9 %; Neutrophils # 6.5 K/mcL (1.6-8.9); Platelet Count 228 K/mcL (140-400); Red Blood Count 3.93 M/mcL (3.82-4.97); Red Cell Distribution Width 12.4 % (11.5-14.5); Segmented Neutrophils % 63.6 %; White Blood Count 10.2 K/mcL (4.3-11.1)
[2019-02-04] MEDS ORDERED: Isovue-370 500 ML BOTTLE IVP ONE (19:58)
[2019-02-04 20:02] LABS: Alanine Aminotransferase 21 Units/L (7-52); Albumin 3.4 g/dL (3.5-5.7); Albumin/Globulin Ratio 1.3 (1.1-2.2); Alkaline Phosphatase 108 Units/L (34-104); Aspartate Amino Transferase 13 Units/L (13-39); BUN/Creatinine Ratio 22 (6-26); Bilirubin,Total 0.4 mg/dL (0.3-1.0); Blood Urea Nitrogen 13 mg/dL (8-23); Calcium 8.4 mg/dL (8.6-10.3); Carbon Dioxide 27 mEq/L (23-29); Chloride 99 mEq/L (98-107); Globulin 2.6 g/dL (2.4-3.5); Glucose 208 mg/dL (70-105); Osmolality,Calculated 282 (280-300); Potassium 4.1 mEq/L (3.5-5.1); Sodium 133 mEq/L (136-145); Troponin I < 0.03 ng/mL (< 0.04); eGFR For African Americans > 60 (> 60); eGFR For Non-African Americans > 60 (> 60)
[2019-02-05 00:04] LABS: Thyroid Stimulating Hormone 1.936 mcIU/mL (0.340-5.600); Triiodothyronine (T3) Free 3.52 pg/mL (2.50-3.90)
[2019-02-05] MEDS ORDERED: Naloxone 0.4 MG/ML INJ IVP PRN (01:54)
[2019-02-05 06:55] LABS: Basophils % 0.1 %; Eosinophils % 0.1 %; Hematocrit 38.2 % (35.3-44.9); Hemoglobin 12.6 g/dL (11.5-15.4); Immature Granulocytes % 0.5 % (0-4); Lymphocytes % 11.9 %; Mean Corpuscular Volume 93.9 fL (83.0-100.0); Mean Platelet Volume 9.8 fL (9.4-12.4); Monocytes # 0.3 K/mcL (0.0-1.3); Monocytes % 3.5 %; Neutrophils # 7.2 K/mcL (1.6-8.9); Platelet Count 226 K/mcL (140-400); Red Blood Count 4.07 M/mcL (3.82-4.97); Red Cell Distribution Width 12.4 % (11.5-14.5); Segmented Neutrophils % 83.9 %; White Blood Count 8.6 K/mcL (4.3-11.1)
[2019-02-05 07:01] LABS: Prothrombin Time 11.5 Seconds (9.4-12.1)
[2019-02-05 07:17] LABS: Alanine Aminotransferase 22 Units/L (7-52); Albumin 3.7 g/dL (3.5-5.7); Albumin/Globulin Ratio 1.4 (1.1-2.2); Alkaline Phosphatase 116 Units/L (34-104); Aspartate Amino Transferase 13 Units/L (13-39); BUN/Creatinine Ratio 20 (6-26); Bilirubin,Total 0.6 mg/dL (0.3-1.0); Blood Urea Nitrogen 14 mg/dL (8-23); Carbon Dioxide 26 mEq/L (23-29); Chloride 99 mEq/L (98-107); Chol/HDL Ratio 2.5 (0-4.9); Cholesterol 150 mg/dL (< 200); Globulin 2.7 g/dL (2.4-3.5); Glucose 336 mg/dL (70-105); HDL Cholesterol 59 mg/dL (40-59); LDL Cholesterol,Calculated 73 mg/dL (0-99); Magnesium 1.8 mg/dL (1.6-2.6); Osmolality,Calculated 294 (280-300); Phosphorous 4.3 mg/dL (2.7-4.5); Potassium 4.5 mEq/L (3.5-5.1); Sodium 135 mEq/L (136-145); Total Protein 6.4 g/dL (6.4-8.9); Triglycerides 92 mg/dL (< 150); eGFR For African Americans > 60 (> 60); eGFR For Non-African Americans > 60 (> 60)
[2019-02-05] MEDS ORDERED: Diltiazem CD (24hr) 180 MG CAPSULE PO SCH (09:00)
[2019-02-05] MEDS ORDERED: Albuterol 2.5 MG/3 ML NEBULIZER IH PRN (13:52)
[2019-02-05] MEDS ORDERED: *HR* Heparin 5,000 UNIT/ML VIAL SQ SCH (14:00)
[2019-02-05] MEDS: Apixaban 5 MG TABLET PO SCH (19:58)
[2019-02-05] MEDS: Gabapentin 400 MG CAPSULE PO SCH (19:59)
[2019-02-05] MEDS: lamoTRIgine 25 MG TABLET PO SCH (19:59)
[2019-02-05] MEDS: Insulin LISPRO 300 UNITS/3 ML VIAL SQ SCH (20:00)
[2019-02-05] MEDS: Fluticasone Propionate Nasal 50 MCG/SPRAY BOTTLE NS SCH (20:00)
[2019-02-05] MEDS: Budesonide/Formoterol 160/4.5 1 PUFF INH IH SCH (20:01)
[2019-02-05] MEDS ORDERED: *HR* Dextrose 50 % in Water (Syg) 50 ML SYRINGE IVP PRN (20:03)
[2019-02-05] MEDS ORDERED: D5% in Water 1,000 ML IVC PRN (20:03)
[2019-02-05] MEDS ORDERED: Dextrose Gel 15 GM/37.5 ML TUBE PO PRN ×2 (20:03)
[2019-02-05] MEDS ORDERED: Insulin LISPRO 300 UNITS/3 ML VIAL SQ ONE (20:12)
[2019-02-05] MEDS: rOPINIRole 1 MG TABLET PO SCH (20:13)
[2019-02-06] MEDS: Budesonide/Formoterol 160/4.5 1 PUFF INH IH SCH ×2 (07:39→20:25)
[2019-02-06] MEDS: Insulin LISPRO 300 UNITS/3 ML VIAL SQ SCH ×4 (08:37→21:06)
[2019-02-06] MEDS: lamoTRIgine 25 MG TABLET PO SCH ×2 (08:40→21:13)
[2019-02-06] MEDS: Diltiazem CD (24hr) 180 MG CAPSULE PO SCH (08:41)
[2019-02-06] MEDS: Lisinopril 20 MG TABLET PO SCH (08:41)
[2019-02-06] MEDS: Gabapentin 400 MG CAPSULE PO SCH ×2 (08:41→21:12)
[2019-02-06] MEDS: Apixaban 5 MG TABLET PO SCH ×2 (08:41→21:13)
[2019-02-06] MEDS: Aspirin Enteric Coated 81 MG Tablet PO SCH (08:41)
[2019-02-06] MEDS: Furosemide 20 MG TABLET PO SCH (08:41)
[2019-02-06] MEDS: Fluticasone Propionate Nasal 50 MCG/SPRAY BOTTLE NS SCH ×2 (08:43→21:15)
[2019-02-06] MEDS ORDERED: Insulin DETEMIR 100 UNIT/ML X5UNITS SQ SCH (21:00)
[2019-02-06] MEDS: rOPINIRole 1 MG TABLET PO SCH (21:13)
[2019-02-07] MEDS: Budesonide/Formoterol 160/4.5 1 PUFF INH IH SCH (07:30)
[2019-02-07] MEDS: Lisinopril 20 MG TABLET PO SCH (08:05)
[2019-02-07] MEDS: Apixaban 5 MG TABLET PO SCH (08:05)
[2019-02-07] MEDS: Furosemide 20 MG TABLET PO SCH (08:05)
[2019-02-07] MEDS: Diltiazem CD (24hr) 180 MG CAPSULE PO SCH (08:05)
[2019-02-07] MEDS: Gabapentin 400 MG CAPSULE PO SCH (08:05)
[2019-02-07] MEDS: Aspirin Enteric Coated 81 MG Tablet PO SCH (08:05)
[2019-02-07] MEDS: lamoTRIgine 25 MG TABLET PO SCH (08:08)
[2019-02-07] MEDS: Insulin LISPRO 300 UNITS/3 ML VIAL SQ SCH ×2 (08:09→12:28)
[2019-02-07] MEDS: Fluticasone Propionate Nasal 50 MCG/SPRAY BOTTLE NS SCH (08:09)
[2019-02-07] MEDS ORDERED: Cholecalciferol (D-3) 1,000 UNIT (25MCG) TABLET PO SCH (09:00)
[2019-02-07] MEDS ORDERED: LISINOPRIL 30 MG PO SCH (09:00)
[2019-02-07] MEDS ORDERED: Cyanocobalamin (B-12) 1,000 MCG TABLET PO SCH (09:00)
[2019-02-07 09:32] LABS: Estimated Average Glucose 183 mg/dl
[2019-02-07] MEDS: Metoprolol XL (24 HR) Succ 50 MG TAB.ER.24H PO SCH ×2 (10:01→11:27)
[2019-02-07 12:25] VITALS: BP 157/58
[2019-02-07] MEDS ORDERED: Insulin DETEMIR 100 UNIT/ML X5UNITS SQ SCH (21:00)
== END 2019-02-07 15:05 | disposition home or self-care (01) ==
LOC: 2NENU 18:48 → EMEROOARM 18:48 → 2NENU 02-05 00:45
PROVIDERS: ADMIT Family Medicine; ATTEND Family Medicine

== ENCOUNTER 2019-04-29 11:44 | Observation (INO) ==
[2019-04-29] MEDS ORDERED: Isovue-370 500 ML BOTTLE IVP ONE (11:54)
[2019-04-29 12:16] LABS: Hematocrit 39.6 % (35.3-44.9); Hemoglobin 13.1 g/dL (11.5-15.4); Mean Corpuscular HGB Conc 33.1 g/dL (31.6-35.5); Mean Corpuscular Hemoglobin 30.3 pg (28.0-33.3); Mean Corpuscular Volume 91.7 fL (83.0-100.0); Mean Platelet Volume 9.3 fL (9.4-12.4); Platelet Count 245 K/mcL (140-400); Red Blood Count 4.32 M/mcL (3.82-4.97); Red Cell Distribution Width 12.2 % (11.5-14.5); White Blood Count 6.9 K/mcL (4.3-11.1)
[2019-04-29 12:34] LABS: INR 1.2; Prothrombin Time 13.3 Seconds (9.4-12.1)
[2019-04-29 12:35] LABS: Activated Partial Thrombo Time 37.5 Seconds (26.0-36.0)
[2019-04-29] MEDS ORDERED: *HR* Metoprolol 5 MG/5 ML VIAL IVP ONE (12:36)
[2019-04-29 12:41] LABS: BUN/Creatinine Ratio 23 (6-26); Blood Urea Nitrogen 15 mg/dL (8-23); Calcium 9.2 mg/dL (8.6-10.3); Carbon Dioxide 28 mEq/L (23-29); Chloride 100 mEq/L (98-107); Glucose 84 mg/dL (70-105); Osmolality,Calculated 284 (280-300); Potassium 4.2 mEq/L (3.5-5.1); Sodium 137 mEq/L (136-145); eGFR For African Americans > 60 (> 60); eGFR For Non-African Americans > 60 (> 60)
[2019-04-29 12:42] LABS: Troponin I < 0.03 ng/mL (< 0.04)
[2019-04-29] MEDS ORDERED: Aspirin 81 MG TAB.CHEW PO STA (13:15)
[2019-04-29] MEDS ORDERED: Fluticasone Propionate Nasal 50 MCG/SPRAY BOTTLE NS PRN (16:52)
[2019-04-29] MEDS ORDERED: Albuterol 2.5 MG/3 ML NEBULIZER AER PRN (16:52)
[2019-04-29] MEDS ORDERED: Ondansetron 4 MG/2 ML VIAL IVP PRN (16:57)
[2019-04-29] MEDS ORDERED: Mag Hydrox/Al Hydrox/Simeth 30 ML UDC PO PRN (16:57)
[2019-04-29] MEDS ORDERED: Acetaminophen 325 MG TABLET PO PRN (16:57)
[2019-04-29] MEDS ORDERED: Naloxone 0.4 MG/ML INJ IVP PRN (16:57)
[2019-04-29] MEDS ORDERED: Dextrose Gel 15 GM/37.5 ML TUBE PO PRN ×2 (17:04)
[2019-04-29] MEDS ORDERED: D5% in Water 1,000 ML IVC PRN (17:04)
[2019-04-29] MEDS ORDERED: *HR* Dextrose 50 % in Water (Syg) 50 ML SYRINGE IVP PRN (17:04)
[2019-04-29] MEDS ORDERED: Insulin LISPRO 300 UNITS/3 ML VIAL SQ SCH (21:00)
[2019-04-29] MEDS ORDERED: rOPINIRole 1 MG TABLET PO SCH (21:00)
[2019-04-29] MEDS: cloNIDine HCl 0.1 MG TABLET PO SCH (21:55)
[2019-04-29] MEDS: lamoTRIgine 25 MG TABLET PO SCH (21:55)
[2019-04-29] MEDS: Apixaban 5 MG TABLET PO SCH (21:55)
[2019-04-29] MEDS: Gabapentin 400 MG CAPSULE PO SCH (21:56)
[2019-04-29] MEDS: Insulin DETEMIR 100 UNIT/ML X5UNITS SQ SCH (21:56)
[2019-04-29] MEDS: Budesonide/Formoterol 160/4.5 1 PUFF INH IH SCH (21:58)
[2019-04-29] MEDS: carvediloL 6.25 MG TABLET PO SCH (22:01)
[2019-04-30 04:50] LABS: Basophils % 0.3 %; Eosinophils # 0.1 K/mcL (0.0-0.6); Eosinophils % 1.6 %; Hematocrit 36.2 % (35.3-44.9); Hemoglobin 12.1 g/dL (11.5-15.4); Immature Granulocytes % 0.2 % (0-4); Lymphocytes # 2.1 K/mcL (0.6-4.6); Lymphocytes % 34.5 %; Mean Corpuscular HGB Conc 33.4 g/dL (31.6-35.5); Mean Corpuscular Hemoglobin 30.1 pg (28.0-33.3); Mean Platelet Volume 9.7 fL (9.4-12.4); Monocytes # 0.5 K/mcL (0.0-1.3); Monocytes % 8.8 %; Neutrophils # 3.3 K/mcL (1.6-8.9); Platelet Count 244 K/mcL (140-400); Red Blood Count 4.02 M/mcL (3.82-4.97); Red Cell Distribution Width 12.2 % (11.5-14.5); Segmented Neutrophils % 54.6 %; White Blood Count 6.1 K/mcL (4.3-11.1)
[2019-04-30 04:53] LABS: Estimated Average Glucose 169 mg/dl
[2019-04-30 05:07] LABS: BUN/Creatinine Ratio 25 (6-26); Blood Urea Nitrogen 15 mg/dL (8-23); Calcium 8.8 mg/dL (8.6-10.3); Carbon Dioxide 29 mEq/L (23-29); Chloride 101 mEq/L (98-107); Glucose 143 mg/dL (70-105); Magnesium 1.8 mg/dL (1.6-2.6); Osmolality,Calculated 289 (280-300); Potassium 3.8 mEq/L (3.5-5.1); Sodium 138 mEq/L (136-145); eGFR For African Americans > 60 (> 60); eGFR For Non-African Americans > 60 (> 60)
[2019-04-30] MEDS ORDERED: Insulin LISPRO 300 UNITS/3 ML VIAL SQ SCH (07:30)
[2019-04-30 07:44] VITALS: BP 129/65
[2019-04-30] MEDS: Budesonide/Formoterol 160/4.5 1 PUFF INH IH SCH (07:52)
[2019-04-30] MEDS: Gabapentin 400 MG CAPSULE PO SCH (08:08)
[2019-04-30] MEDS: cloNIDine HCl 0.1 MG TABLET PO SCH (08:09)
[2019-04-30] MEDS: carvediloL 6.25 MG TABLET PO SCH (08:09)
[2019-04-30] MEDS: lamoTRIgine 25 MG TABLET PO SCH (08:09)
[2019-04-30] MEDS: Apixaban 5 MG TABLET PO SCH (08:10)
[2019-04-30] MEDS: Insulin DETEMIR 100 UNIT/ML X5UNITS SQ SCH (08:13)
[2019-04-30] MEDS ORDERED: Aspirin Enteric Coated 81 MG Tablet PO SCH (09:00)
[2019-04-30] MEDS ORDERED: DilTIAZem CD (24hr) 180 MG CAP.ER.24H PO SCH (09:00)
[2019-04-30] MEDS ORDERED: Lisinopril 20 MG TABLET PO SCH ×2 (09:00)
[2019-04-30] MEDS ORDERED: Cyanocobalamin (B-12) 1,000 MCG TABLET PO SCH (09:00)
[2019-04-30] MEDS ORDERED: Cholecalciferol (D-3) 1,000 UNIT (25MCG) TABLET PO SCH (09:00)
[2019-04-30] MEDS ORDERED: Furosemide 20 MG TABLET PO SCH (09:00)
== END 2019-04-30 13:34 | disposition home or self-care (01) ==
LOC: 3BNU 11:44 → EMEROOARM 11:44 → SUATTDRO 14:45 → 3BNU 16:03
PROVIDERS: ADMIT Internal Medicine; ATTEND Student in an Organized Health Care Education/Training Program

== ENCOUNTER 2019-08-21 19:04 | Observation (INO) ==
[2019-08-21 19:39] LABS: Basophils % 0.5 %; Eosinophils # 0.2 K/mcL (0.0-0.6); Hematocrit 40.5 % (35.3-44.9); Hemoglobin 13.2 g/dL (11.5-15.4); Immature Granulocytes % 0.3 % (0-4); Lymphocytes # 1.9 K/mcL (0.6-4.6); Lymphocytes % 25.6 %; Mean Corpuscular HGB Conc 32.6 g/dL (31.6-35.5); Mean Corpuscular Hemoglobin 30.3 pg (28.0-33.3); Mean Corpuscular Volume 92.9 fL (83.0-100.0); Mean Platelet Volume 9.6 fL (9.4-12.4); Monocytes # 0.6 K/mcL (0.0-1.3); Monocytes % 7.5 %; Neutrophils # 4.8 K/mcL (1.6-8.9); Platelet Count 238 K/mcL (140-400); Red Blood Count 4.36 M/mcL (3.82-4.97); Red Cell Distribution Width 12.6 % (11.5-14.5); Segmented Neutrophils % 64.1 %; White Blood Count 7.5 K/mcL (4.3-11.1)
[2019-08-21 19:57] LABS: BUN/Creatinine Ratio 20 (6-26); Blood Urea Nitrogen 15 mg/dL (8-23); Calcium 9.3 mg/dL (8.6-10.3); Carbon Dioxide 29 mEq/L (23-29); Chloride 101 mEq/L (98-107); Glucose 165 mg/dL (70-105); Osmolality,Calculated 289 (280-300); Potassium 4.1 mEq/L (3.5-5.1); Sodium 137 mEq/L (136-145); Troponin I < 0.03 ng/mL (< 0.04); eGFR For African Americans > 60 (> 60); eGFR For Non-African Americans > 60 (> 60)
[2019-08-21] MEDS ORDERED: *HR* Labetalol 20 MG/4 ML SYRINGE IVP ONE (20:35)
[2019-08-21] MEDS: Nitroglycerin 0.4 MG TAB.SUBL SL PRN ×3 (21:12→21:28)
[2019-08-21] MEDS ORDERED: Furosemide 20 MG/2 ML VIAL IVP ONE (22:28)
[2019-08-22] MEDS ORDERED: Naloxone 0.4 MG/ML INJ IVP PRN (02:19)
[2019-08-22] MEDS ORDERED: D5% in Water 1,000 ML IVC PRN (02:21)
[2019-08-22] MEDS ORDERED: *HR* Dextrose 50 % in Water (Syg) 50 ML SYRINGE IVP PRN (02:21)
[2019-08-22] MEDS ORDERED: Dextrose Gel 15 GM/37.5 ML TUBE PO PRN ×2 (02:21)
[2019-08-22 02:46] LABS: Hematocrit 38.5 % (35.3-44.9); Hemoglobin 12.1 g/dL (11.5-15.4); Mean Corpuscular HGB Conc 31.4 g/dL (31.6-35.5); Mean Corpuscular Hemoglobin 29.4 pg (28.0-33.3); Mean Corpuscular Volume 93.7 fL (83.0-100.0); Mean Platelet Volume 11.3 fL (9.4-12.4); Platelet Count 151 K/mcL (140-400); Red Blood Count 4.11 M/mcL (3.82-4.97); Red Cell Distribution Width 12.7 % (11.5-14.5); White Blood Count 3.8 K/mcL (4.3-11.1)
[2019-08-22 03:04] LABS: BUN/Creatinine Ratio 18 (6-26); Blood Urea Nitrogen 13 mg/dL (8-23); Calcium 8.7 mg/dL (8.6-10.3); Carbon Dioxide 26 mEq/L (23-29); Chloride 104 mEq/L (98-107); Glucose 179 mg/dL (70-105); Osmolality,Calculated 295 (280-300); Potassium 3.7 mEq/L (3.5-5.1); Sodium 140 mEq/L (136-145); eGFR For African Americans > 60 (> 60); eGFR For Non-African Americans > 60 (> 60)
[2019-08-22 03:09] LABS: Magnesium 1.9 mg/dL (1.6-2.6); Phosphorous 5.2 mg/dL (2.7-4.5)
[2019-08-22] MEDS ORDERED: *HR* Labetalol 20 MG/4 ML SYRINGE IVP ONE (03:41)
[2019-08-22] MEDS: Insulin LISPRO 300 UNITS/3 ML VIAL SQ SCH ×4 (04:06→15:36)
[2019-08-22] MEDS: Apixaban 5 MG TABLET PO SCH ×2 (08:32→21:01)
[2019-08-22] MEDS: Aspirin Enteric Coated 81 MG Tablet PO SCH (08:32)
[2019-08-22] MEDS: carvediloL 25 MG TABLET PO SCH ×2 (08:32→16:38)
[2019-08-22] MEDS ORDERED: Famotidine 20 MG TABLET PO PRN (08:53)
[2019-08-22] MEDS ORDERED: Ondansetron ODT 4 MG TAB.RAPDIS PO PRN (08:53)
[2019-08-22] MEDS ORDERED: *HR* HYDROcodone/Acet 5/325 mg TABLET PO PRN (08:53)
[2019-08-22] MEDS ORDERED: Fluticasone Propionate Nasal 50 MCG/SPRAY BOTTLE NS PRN (08:53)
[2019-08-22] MEDS ORDERED: lisinopriL 20 MG TABLET PO SCH (09:00)
[2019-08-22] MEDS ORDERED: Furosemide 20 MG/2 ML VIAL IVP SCH (09:00)
[2019-08-22] MEDS ORDERED: NON-FORMULARY MEDICATION 1 EACH EACH (Cetirizine Hcl [Zyrtec] 10 MG) PO SCH (09:00)
[2019-08-22] MEDS: Gabapentin 400 MG CAPSULE PO SCH ×2 (09:23→21:01)
[2019-08-22] MEDS: Cholecalciferol (D-3) 1,000 UNIT (25MCG) TABLET PO SCH (09:23)
[2019-08-22] MEDS: Cyanocobalamin (B-12) 1,000 MCG TABLET PO SCH (09:23)
[2019-08-22] MEDS: amLODIPine 5 MG TABLET PO SCH (09:23)
[2019-08-22] MEDS: Sucralfate 1 GM TABLET PO SCH ×2 (09:23→21:02)
[2019-08-22] MEDS: Loratadine 10 MG TABLET PO SCH (09:24)
[2019-08-22] MEDS: lamoTRIgine 25 MG TABLET PO SCH ×2 (09:25→21:02)
[2019-08-22] MEDS: Budesonide/Formoterol 160/4.5 1 PUFF INH IH SCH ×2 (11:04→21:46)
[2019-08-22] MEDS: Tiotropium 18 MCG inhalation IH SCH (11:06)
[2019-08-22] MEDS ORDERED: (Rizatriptan Benzoate [Maxalt] 10 MG) PO PRN (12:41)
[2019-08-22] MEDS: Isosorbide MONOnitrate (24 HR) 30 MG TAB.ER.24H PO SCH (15:36)
[2019-08-22] MEDS: Furosemide 20 MG/2 ML VIAL IVP SCH (16:38)
[2019-08-22] MEDS: rOPINIRole 1 MG TABLET PO SCH (21:02)
[2019-08-22] MEDS: Insulin DETEMIR 100 UNIT/ML X5UNITS SQ SCH (21:02)
[2019-08-23 01:36] LABS: BUN/Creatinine Ratio 27 (6-26); Blood Urea Nitrogen 21 mg/dL (8-23); Calcium 8.8 mg/dL (8.6-10.3); Carbon Dioxide 29 mEq/L (23-29); Chloride 100 mEq/L (98-107); Glucose 134 mg/dL (70-105); Magnesium 1.9 mg/dL (1.6-2.6); Osmolality,Calculated 287 (280-300); Phosphorous 4.5 mg/dL (2.7-4.5); Potassium 3.9 mEq/L (3.5-5.1); Sodium 136 mEq/L (136-145); eGFR For African Americans > 60 (> 60); eGFR For Non-African Americans > 60 (> 60)
[2019-08-23] MEDS: Furosemide 20 MG/2 ML VIAL IVP SCH (06:15)
[2019-08-23] MEDS: Tiotropium 18 MCG inhalation IH SCH (09:43)
[2019-08-23] MEDS: Budesonide/Formoterol 160/4.5 1 PUFF INH IH SCH ×2 (09:44→20:45)
[2019-08-23] MEDS: Gabapentin 400 MG CAPSULE PO SCH ×2 (10:57→20:55)
[2019-08-23] MEDS: lamoTRIgine 25 MG TABLET PO SCH ×2 (10:57→20:54)
[2019-08-23] MEDS: Aspirin Enteric Coated 81 MG Tablet PO SCH (10:57)
[2019-08-23] MEDS: Cholecalciferol (D-3) 1,000 UNIT (25MCG) TABLET PO SCH (10:57)
[2019-08-23] MEDS: Cyanocobalamin (B-12) 1,000 MCG TABLET PO SCH (10:57)
[2019-08-23] MEDS: Apixaban 5 MG TABLET PO SCH ×2 (10:58→20:54)
[2019-08-23] MEDS: Isosorbide MONOnitrate (24 HR) 30 MG TAB.ER.24H PO SCH (10:58)
[2019-08-23] MEDS: lisinopriL 20 MG TABLET PO SCH (10:58)
[2019-08-23] MEDS: amLODIPine 5 MG TABLET PO SCH (10:59)
[2019-08-23] MEDS: carvediloL 25 MG TABLET PO SCH ×2 (10:59→16:31)
[2019-08-23] MEDS: Loratadine 10 MG TABLET PO SCH (10:59)
[2019-08-23] MEDS: Sucralfate 1 GM TABLET PO SCH ×2 (10:59→20:55)
[2019-08-23] MEDS: Insulin LISPRO 300 UNITS/3 ML VIAL SQ SCH ×3 (11:00→19:02)
[2019-08-23] MEDS ORDERED: Furosemide 20 MG/2 ML VIAL IVP SCH (17:00)
[2019-08-23] MEDS: rOPINIRole 1 MG TABLET PO SCH (20:54)
[2019-08-23] MEDS: Insulin DETEMIR 100 UNIT/ML X5UNITS SQ SCH (20:55)
[2019-08-24 03:22] VITALS: BP 150/83
[2019-08-24 06:28] LABS: BUN/Creatinine Ratio 30 (6-26); Blood Urea Nitrogen 21 mg/dL (8-23); Calcium 8.9 mg/dL (8.6-10.3); Carbon Dioxide 31 mEq/L (23-29); Chloride 102 mEq/L (98-107); Glucose 79 mg/dL (70-105); Magnesium 2.1 mg/dL (1.6-2.6); Osmolality,Calculated 288 (280-300); Phosphorous 4.8 mg/dL (2.7-4.5); Potassium 3.9 mEq/L (3.5-5.1); Sodium 138 mEq/L (136-145); eGFR For African Americans > 60 (> 60); eGFR For Non-African Americans > 60 (> 60)
[2019-08-24] MEDS ORDERED: Furosemide 20 MG TABLET PO SCH (08:00)
[2019-08-24] MEDS: Budesonide/Formoterol 160/4.5 1 PUFF INH IH SCH (08:11)
[2019-08-24] MEDS: Tiotropium 18 MCG inhalation IH SCH (08:11)
[2019-08-24] MEDS: Insulin LISPRO 300 UNITS/3 ML VIAL SQ SCH (08:34)
[2019-08-24] MEDS: Gabapentin 400 MG CAPSULE PO SCH (08:35)
[2019-08-24] MEDS: Cholecalciferol (D-3) 1,000 UNIT (25MCG) TABLET PO SCH (08:35)
[2019-08-24] MEDS: Cyanocobalamin (B-12) 1,000 MCG TABLET PO SCH (08:35)
[2019-08-24] MEDS: lamoTRIgine 25 MG TABLET PO SCH (08:35)
[2019-08-24] MEDS: lisinopriL 20 MG TABLET PO SCH (08:35)
[2019-08-24] MEDS: Loratadine 10 MG TABLET PO SCH (08:37)
[2019-08-24] MEDS: Apixaban 5 MG TABLET PO SCH (08:37)
[2019-08-24] MEDS: Isosorbide MONOnitrate (24 HR) 30 MG TAB.ER.24H PO SCH (08:38)
[2019-08-24] MEDS: carvediloL 25 MG TABLET PO SCH (08:38)
[2019-08-24] MEDS: amLODIPine 5 MG TABLET PO SCH (08:38)
[2019-08-24] MEDS: Aspirin Enteric Coated 81 MG Tablet PO SCH (08:38)
[2019-08-24] MEDS: Sucralfate 1 GM TABLET PO SCH (08:38)
== END 2019-08-24 15:19 | disposition home health service (06) ==
LOC: EMEROOARM 19:04 → 3BNU 19:04 → SUATTDRO 22:38 → 3BNU 22:56
PROVIDERS: ADMIT Family Medicine; ATTEND Internal Medicine

== ENCOUNTER 2019-09-03 16:42 | Observation (INO) ==
[2019-09-03] MEDS ORDERED: Aspirin 81 MG TAB.CHEW PO STA (17:17)
[2019-09-03 17:22] LABS: INR 1.3; Prothrombin Time 14.2 Seconds (9.4-12.1)
[2019-09-03 17:28] LABS: Basophils % 0.5 %; Eosinophils # 0.2 K/mcL (0.0-0.6); Eosinophils % 2.3 %; Hematocrit 37.9 % (35.3-44.9); Hemoglobin 11.7 g/dL (11.5-15.4); Immature Granulocytes % 0.3 % (0-4); Lymphocytes # 2.1 K/mcL (0.6-4.6); Lymphocytes % 31.9 %; Mean Corpuscular HGB Conc 30.9 g/dL (31.6-35.5); Mean Corpuscular Hemoglobin 29.5 pg (28.0-33.3); Mean Corpuscular Volume 95.7 fL (83.0-100.0); Mean Platelet Volume 10.2 fL (9.4-12.4); Monocytes # 0.6 K/mcL (0.0-1.3); Monocytes % 8.8 %; Neutrophils # 3.7 K/mcL (1.6-8.9); Platelet Count 245 K/mcL (140-400); Red Blood Count 3.96 M/mcL (3.82-4.97); Red Cell Distribution Width 12.5 % (11.5-14.5); Segmented Neutrophils % 56.2 %; White Blood Count 6.6 K/mcL (4.3-11.1)
[2019-09-03 17:36] LABS: BUN/Creatinine Ratio 21 (6-26); Blood Urea Nitrogen 16 mg/dL (8-23); Calcium 9.2 mg/dL (8.6-10.3); Carbon Dioxide 29 mEq/L (23-29); Chloride 100 mEq/L (98-107); Glucose 155 mg/dL (70-105); Osmolality,Calculated 288 (280-300); Potassium 4.5 mEq/L (3.5-5.1); Sodium 137 mEq/L (136-145); eGFR For African Americans > 60 (> 60); eGFR For Non-African Americans > 60 (> 60)
[2019-09-03 17:37] LABS: Troponin I < 0.03 ng/mL (< 0.04)
[2019-09-03] MEDS ORDERED: Nitroglycerin 0.4 MG TAB.SUBL SL PRN (18:04)
[2019-09-03] MEDS ORDERED: Naloxone 0.4 MG/ML INJ IVP PRN (23:09)
[2019-09-03] MEDS ORDERED: Dextrose Gel 15 GM/37.5 ML TUBE PO PRN ×2 (23:17)
[2019-09-03] MEDS ORDERED: *HR* Dextrose 50 % in Water (Syg) 50 ML SYRINGE IVP PRN (23:17)
[2019-09-03] MEDS ORDERED: D5% in Water 1,000 ML IVC PRN (23:17)
[2019-09-03] MEDS: Apixaban 5 MG TABLET PO SCH (23:52)
[2019-09-03] MEDS: rOPINIRole 1 MG TABLET PO SCH (23:52)
[2019-09-03] MEDS: lisinopriL 10 MG TABLET PO SCH (23:52)
[2019-09-03] MEDS: Gabapentin 400 MG CAPSULE PO SCH (23:53)
[2019-09-03] MEDS: lamoTRIgine 25 MG TABLET PO SCH (23:53)
[2019-09-03] MEDS: Furosemide 20 MG TABLET PO SCH (23:56)
[2019-09-04] MEDS: Insulin LISPRO 300 UNITS/3 ML VIAL SQ SCH ×4 (00:06→16:48)
[2019-09-04 05:48] LABS: Hemoglobin 11.9 g/dL (11.5-15.4); Mean Corpuscular HGB Conc 31.3 g/dL (31.6-35.5); Mean Corpuscular Hemoglobin 29.5 pg (28.0-33.3); Mean Corpuscular Volume 94.3 fL (83.0-100.0); Mean Platelet Volume 9.9 fL (9.4-12.4); Platelet Count 221 K/mcL (140-400); Red Blood Count 4.03 M/mcL (3.82-4.97); Red Cell Distribution Width 12.4 % (11.5-14.5); White Blood Count 5.9 K/mcL (4.3-11.1)
[2019-09-04 06:06] LABS: BUN/Creatinine Ratio 17 (6-26); Blood Urea Nitrogen 11 mg/dL (8-23); Calcium 8.9 mg/dL (8.6-10.3); Carbon Dioxide 30 mEq/L (23-29); Chloride 102 mEq/L (98-107); Glucose 140 mg/dL (70-105); Osmolality,Calculated 292 (280-300); Potassium 4.1 mEq/L (3.5-5.1); Sodium 140 mEq/L (136-145); eGFR For African Americans > 60 (> 60); eGFR For Non-African Americans > 60 (> 60)
[2019-09-04] MEDS: lisinopriL 10 MG TABLET PO SCH (09:00)
[2019-09-04] MEDS: carvediloL 25 MG TABLET PO SCH ×2 (15:03→15:36)
[2019-09-04] MEDS: Gabapentin 400 MG CAPSULE PO SCH ×2 (15:04→22:34)
[2019-09-04] MEDS: Furosemide 20 MG TABLET PO SCH ×2 (15:04→15:36)
[2019-09-04] MEDS: lamoTRIgine 25 MG TABLET PO SCH ×2 (15:04→22:34)
[2019-09-04] MEDS: amLODIPine 5 MG TABLET PO SCH (15:36)
[2019-09-04] MEDS: Aspirin Enteric Coated 81 MG Tablet PO SCH (15:37)
[2019-09-04] MEDS ORDERED: Insulin LISPRO 300 UNITS/3 ML VIAL SQ SCH (21:00)
[2019-09-04] MEDS ORDERED: Heparin 25,000 UNIT/250 ML D5W 25,000 UNIT/250 ML IV.SOLN IVC SCH ×2 (21:00→21:30)
[2019-09-04] MEDS ORDERED: *HR* Heparin 5,000 UNIT/ML VIAL IVP ONE (21:00)
[2019-09-04] MEDS ORDERED: *HR* Heparin 5,000 UNIT/ML VIAL IVP PRN ×2 (21:00)
[2019-09-04 21:46] LABS: Heparin anti-factor XA UFH 0.74 IU/mL (0.30-0.70)
[2019-09-04 21:47] LABS: INR 1.1; Prothrombin Time 12.7 Seconds (9.4-12.1)
[2019-09-04 22:31] LABS: Activated Partial Thrombo Time 34.8 Seconds (26.0-36.0)
[2019-09-04] MEDS: rOPINIRole 1 MG TABLET PO SCH (22:34)
[2019-09-05] MEDS: Apixaban 5 MG TABLET PO SCH (01:36)
[2019-09-05] MEDS: Insulin LISPRO 300 UNITS/3 ML VIAL SQ SCH ×2 (07:44→11:57)
[2019-09-05] MEDS: Gabapentin 400 MG CAPSULE PO SCH (08:03)
[2019-09-05] MEDS: Aspirin Enteric Coated 81 MG Tablet PO SCH (08:03)
[2019-09-05] MEDS: amLODIPine 5 MG TABLET PO SCH (08:03)
[2019-09-05] MEDS: lisinopriL 10 MG TABLET PO SCH (08:04)
[2019-09-05] MEDS: Furosemide 20 MG TABLET PO SCH (08:04)
[2019-09-05] MEDS: carvediloL 25 MG TABLET PO SCH (08:04)
[2019-09-05] MEDS: lamoTRIgine 25 MG TABLET PO SCH (08:04)
[2019-09-05] MEDS ORDERED: Isosorbide MONOnitrate (24 HR) 30 MG TAB.ER.24H PO SCH (09:00)
[2019-09-05 10:52] LABS: Basophils % 0.5 %; Eosinophils # 0.2 K/mcL (0.0-0.6); Eosinophils % 2.5 %; Hematocrit 37.2 % (35.3-44.9); Immature Granulocytes % 0.3 % (0-4); Lymphocytes # 1.9 K/mcL (0.6-4.6); Lymphocytes % 32.8 %; Mean Corpuscular HGB Conc 32.3 g/dL (31.6-35.5); Mean Corpuscular Hemoglobin 30.3 pg (28.0-33.3); Mean Corpuscular Volume 93.9 fL (83.0-100.0); Mean Platelet Volume 10.1 fL (9.4-12.4); Monocytes # 0.5 K/mcL (0.0-1.3); Neutrophils # 3.3 K/mcL (1.6-8.9); Platelet Count 224 K/mcL (140-400); Red Blood Count 3.96 M/mcL (3.82-4.97); Red Cell Distribution Width 12.4 % (11.5-14.5); Segmented Neutrophils % 54.9 %; White Blood Count 5.9 K/mcL (4.3-11.1)
[2019-09-05 11:24] LABS: BUN/Creatinine Ratio 17 (6-26); Blood Urea Nitrogen 11 mg/dL (8-23); Calcium 9.2 mg/dL (8.6-10.3); Carbon Dioxide 29 mEq/L (23-29); Chloride 101 mEq/L (98-107); Glucose 183 mg/dL (70-105); Osmolality,Calculated 292 (280-300); Potassium 3.8 mEq/L (3.5-5.1); Sodium 139 mEq/L (136-145); eGFR For African Americans > 60 (> 60); eGFR For Non-African Americans > 60 (> 60)
[2019-09-05] MEDS ORDERED: 0.9 % Sodium Chloride 1,000 ML ONE (12:51)
[2019-09-05] MEDS ORDERED: Heparin 1,000 UNITS/500 mL 500 ML ONE (12:52)
[2019-09-05] MEDS ORDERED: ISOVUE-370 200 ML INFUS..BTL ONE (12:52)
[2019-09-05] MEDS ORDERED: *HR* Heparin 10,000 UNIT/10 ML VIAL ONE (12:52)
[2019-09-05] MEDS ORDERED: Nitroglycerin 1,000 MCG/10 ML VIAL IV ONE (12:52)
[2019-09-05] MEDS ORDERED: *HR* FentaNYL (PF) 100 MCG/2 ML VIAL ONE (13:19)
[2019-09-05] MEDS ORDERED: *HR* Midazolam HCl 2 MG/2 ML VIAL ONE (13:19)
[2019-09-05] MEDS ORDERED: Ondansetron 4 MG/2 ML VIAL ONE (13:57)
[2019-09-05 16:29] VITALS: BP 149/83
[2019-09-05] MEDS ORDERED: Apixaban 5 MG TABLET PO SCH (21:00)
== END 2019-09-05 17:28 | disposition home health service (06) ==
LOC: 3BNU 16:42 → EMEROOARM 16:42 → SUATTDRO 20:49 → 3BNU 21:25
PROVIDERS: ADMIT Family Medicine; ATTEND Internal Medicine

== ENCOUNTER 2019-10-17 08:05 | Inpatient (IN) ==
[2019-10-17] MEDS: 0.9 % Sodium Chloride 1,000 ML IVC SCH ×2 (09:21→16:23)
[2019-10-17] MEDS ORDERED: Heparin 1,000 UNITS/500 mL 0 ML ONE (09:40)
[2019-10-17] MEDS ORDERED: *HR* FentaNYL (PF) 100 MCG/2 ML VIAL IVP PRN (09:42)
[2019-10-17] MEDS ORDERED: *HR* Labetalol 20 MG/4 ML SYRINGE IVP PRN (09:42)
[2019-10-17] MEDS ORDERED: Ondansetron 4 MG/2 ML VIAL IVP ONE ×2 (09:42→13:39)
[2019-10-17] MEDS ORDERED: *HR* OxyCODONE Immed Rel 5 MG TABLET PO PRN (09:42)
[2019-10-17] MEDS ORDERED: *HR* FentaNYL (PF) 100 MCG/2 ML VIAL ONE (10:07)
[2019-10-17] MEDS ORDERED: Heparin 1,000 UNITS/500 mL 1,500 ML ONE (10:07)
[2019-10-17] MEDS ORDERED: 0.9 % Sodium Chloride 1,000 ML ONE (10:07)
[2019-10-17] MEDS ORDERED: *HR* Heparin 10,000 UNIT/10 ML VIAL ONE (10:07)
[2019-10-17] MEDS ORDERED: Lidocaine HCL 4 ML Topical Solution (Laryng-O-Jet Kit Sterile Pak) TP ONE (10:07)
[2019-10-17] MEDS ORDERED: ISOVUE-370 200 ML INFUS..BTL ONE (10:08)
[2019-10-17] MEDS ORDERED: *HR* Vasopressin 20 UNIT/ML VIAL ONE (10:10)
[2019-10-17] MEDS ORDERED: Protamine Sulfate 50 MG/5 ML VIAL IVP ONE (11:50)
[2019-10-17] MEDS ORDERED: Perflutren Lipid Microsphere 1.3 ML in 0.9 % Sodium Chloride 8.7 ML IVP PRN (12:25)
[2019-10-17] MEDS ORDERED: Fluticasone Propionate Nasal 50 MCG/SPRAY BOTTLE NS PRN (12:29)
[2019-10-17] MEDS ORDERED: D5% in Water 1,000 ML IVC PRN (12:40)
[2019-10-17] MEDS ORDERED: Dextrose Gel 15 GM/37.5 ML TUBE PO PRN ×2 (12:40)
[2019-10-17] MEDS ORDERED: *HR* Dextrose 50 % in Water (Syg) 50 ML SYRINGE ONE (13:08)
[2019-10-17] MEDS: *HR* Dextrose 50 % in Water (Vial) 50 ML VIAL IVP PRN ×2 (13:10→13:45)
[2019-10-17] MEDS ORDERED: Lidocaine -MPF 2% 5 ML VIAL SQ ONE (13:39)
[2019-10-17] MEDS ORDERED: EPHEDrine 50 MG/ML VIAL IVP ONE (13:39)
[2019-10-17] MEDS ORDERED: *HR* Labetalol 20 MG/4 ML SYRINGE IVP ONE (13:39)
[2019-10-17] MEDS ORDERED: *HR* Propofol 200 MG/20 ML VIAL IVP ONE (13:39)
[2019-10-17] MEDS ORDERED: *HR* Phenylephrine 10 MG/ML VIAL IVC ONE (13:39)
[2019-10-17] MEDS ORDERED: *HR* Succinylcholine 200 MG/10 ML VIAL IVP ONE (13:39)
[2019-10-17] MEDS: carvediloL 25 MG TABLET PO SCH (16:22)
[2019-10-17] MEDS: Sucralfate 1 GM TABLET PO SCH (16:22)
[2019-10-17] MEDS: Furosemide 20 MG TABLET PO SCH (16:23)
[2019-10-17] MEDS: Insulin LISPRO 300 UNITS/3 ML VIAL SQ SCH (16:29)
[2019-10-17] MEDS: Budesonide/Formoterol 160/4.5 1 PUFF INH IH SCH (19:28)
[2019-10-17] MEDS: Gabapentin 400 MG CAPSULE PO SCH (20:24)
[2019-10-17] MEDS: lamoTRIgine 25 MG TABLET PO SCH (20:24)
[2019-10-17] MEDS: Apixaban 5 MG TABLET PO SCH (20:24)
[2019-10-17] MEDS ORDERED: rOPINIRole 1 MG TABLET PO SCH (21:00)
[2019-10-18 05:36] LABS: Basophils % 0.1 %; Eosinophils # 0.2 K/mcL (0.0-0.6); Eosinophils % 2.5 %; Hematocrit 34.6 % (35.3-44.9); INR 1.3; Immature Granulocytes % 0.1 % (0-4); Lymphocytes # 0.6 K/mcL (0.6-4.6); Lymphocytes % 8.9 %; Mean Corpuscular HGB Conc 31.8 g/dL (31.6-35.5); Mean Corpuscular Hemoglobin 29.9 pg (28.0-33.3); Mean Platelet Volume 9.8 fL (9.4-12.4); Monocytes # 0.6 K/mcL (0.0-1.3); Monocytes % 7.6 %; Neutrophils # 5.8 K/mcL (1.6-8.9); Platelet Count 163 K/mcL (140-400); Prothrombin Time 14.4 Seconds (9.4-12.1); Red Blood Count 3.68 M/mcL (3.82-4.97); Red Cell Distribution Width 12.6 % (11.5-14.5); Segmented Neutrophils % 80.8 %; White Blood Count 7.2 K/mcL (4.3-11.1)
[2019-10-18 05:46] LABS: BUN/Creatinine Ratio 14 (6-26); Blood Urea Nitrogen 9 mg/dL (8-23); Carbon Dioxide 27 mEq/L (23-29); Chloride 103 mEq/L (98-107); Glucose 112 mg/dL (70-105); Osmolality,Calculated 281 (280-300); Potassium 3.8 mEq/L (3.5-5.1); Sodium 136 mEq/L (136-145); eGFR For African Americans > 60 (> 60); eGFR For Non-African Americans > 60 (> 60)
[2019-10-18] MEDS: Budesonide/Formoterol 160/4.5 1 PUFF INH IH SCH (08:02)
[2019-10-18] MEDS: Sucralfate 1 GM TABLET PO SCH (08:07)
[2019-10-18] MEDS: carvediloL 25 MG TABLET PO SCH (08:07)
[2019-10-18] MEDS: lamoTRIgine 25 MG TABLET PO SCH (08:07)
[2019-10-18] MEDS: Gabapentin 400 MG CAPSULE PO SCH (08:08)
[2019-10-18] MEDS: Insulin LISPRO 300 UNITS/3 ML VIAL SQ SCH (08:09)
[2019-10-18] MEDS: Furosemide 20 MG TABLET PO SCH (08:09)
[2019-10-18] MEDS: Apixaban 5 MG TABLET PO SCH (08:09)
[2019-10-18] MEDS ORDERED: Loratadine 10 MG TABLET PO SCH (09:00)
[2019-10-18] MEDS ORDERED: Aspirin Enteric Coated 81 MG Tablet PO SCH (09:00)
[2019-10-18] MEDS ORDERED: Ascorbic Acid 500 MG TABLET PO SCH (09:00)
[2019-10-18] MEDS ORDERED: lisinopriL 10 MG TABLET PO SCH (09:00)
[2019-10-18] MEDS ORDERED: Cyanocobalamin (B-12) 1,000 MCG TABLET PO SCH (09:00)
[2019-10-18] MEDS ORDERED: amLODIPine 5 MG TABLET PO SCH (09:00)
[2019-10-18] MEDS ORDERED: Cholecalciferol (D-3) 1,000 UNIT (25MCG) TABLET PO SCH (09:00)
[2019-10-18] MEDS ORDERED: Isosorbide MONOnitrate (24 HR) 30 MG TAB.ER.24H PO SCH (09:00)
[2019-10-18] MEDS ORDERED: Tiotropium 18 MCG inhalation IH SCH (10:00)
[2019-10-18 10:50] VITALS: BP 161/58
== END 2019-10-18 13:40 | disposition home or self-care (01) | DRG 274 ==
LOC: ICNU 08:05 → 2NNU 14:21
PROVIDERS: ADMIT Internal Medicine Cardiovascular Disease; ATTEND Internal Medicine Cardiovascular Disease

== ENCOUNTER 2020-02-18 10:25 | Observation (INO) ==
[2020-02-18 11:05] LABS: Basophils % 0.3 %; Eosinophils # 0.2 K/mcL (0.0-0.6); Eosinophils % 2.5 %; Hematocrit 38.4 % (35.3-44.9); Hemoglobin 12.2 g/dL (11.5-15.4); Immature Granulocytes % 0.2 % (0-4); Lymphocytes % 32.3 %; Mean Corpuscular HGB Conc 31.8 g/dL (31.6-35.5); Mean Corpuscular Volume 94.3 fL (83.0-100.0); Mean Platelet Volume 9.5 fL (9.4-12.4); Monocytes # 0.5 K/mcL (0.0-1.3); Neutrophils # 3.4 K/mcL (1.6-8.9); Platelet Count 245 K/mcL (140-400); Red Blood Count 4.07 M/mcL (3.82-4.97); Red Cell Distribution Width 12.4 % (11.5-14.5); Segmented Neutrophils % 56.7 %
[2020-02-18 11:10] LABS: Prothrombin Time 11.8 Seconds (9.4-12.1)
[2020-02-18 11:12] LABS: Activated Partial Thrombo Time 25.9 Seconds (26.0-36.0)
[2020-02-18 11:27] LABS: BUN/Creatinine Ratio 15 (6-26); Blood Urea Nitrogen 9 mg/dL (8-23); Calcium 8.8 mg/dL (8.6-10.3); Carbon Dioxide 30 mEq/L (23-29); Chloride 103 mEq/L (98-107); Glucose 74 mg/dL (70-105); Osmolality,Calculated 287 (280-300); Potassium 4.1 mEq/L (3.5-5.1); Sodium 140 mEq/L (136-145); Troponin I < 0.03 ng/mL (< 0.04); eGFR For African Americans > 60 (> 60); eGFR For Non-African Americans > 60 (> 60)
[2020-02-18] MEDS ORDERED: Naloxone 0.4 MG/ML INJ IVP PRN (11:57)
[2020-02-18] MEDS ORDERED: Dextrose Gel 15 GM/37.5 ML TUBE PO PRN ×2 (11:58)
[2020-02-18] MEDS ORDERED: *HR* Dextrose 50 % in Water (Vial) 50 ML VIAL IVP PRN (11:58)
[2020-02-18] MEDS ORDERED: D5% in Water 1,000 ML IVC PRN (11:58)
[2020-02-18] MEDS: Insulin LISPRO 300 UNITS/3 ML VIAL SQ SCH (16:39)
[2020-02-18] MEDS ORDERED: Rizatriptan Benzoate [Maxalt] 10 MG PO PRN (20:06)
[2020-02-18] MEDS ORDERED: Apixaban 5 MG TABLET PO SCH (21:00)
[2020-02-18] MEDS ORDERED: Insulin DETEMIR 100 UNIT/ML X5UNITS SQ SCH (21:00)
[2020-02-18] MEDS ORDERED: rOPINIRole 1 MG TABLET PO SCH (21:00)
[2020-02-18] MEDS ORDERED: Insulin LISPRO 300 UNITS/3 ML VIAL SQ SCH (21:00)
[2020-02-18] MEDS: carvediloL 6.25 MG TABLET PO SCH (21:04)
[2020-02-18] MEDS: lamoTRIgine 25 MG TABLET PO SCH (21:04)
[2020-02-18] MEDS: Gabapentin 400 MG CAPSULE PO SCH (21:05)
[2020-02-18] MEDS: Nitroglycerin 0.4 MG TAB.SUBL SL SCH ×2 (21:24→21:25)
[2020-02-19 05:58] LABS: Basophils % 0.3 %; Eosinophils # 0.2 K/mcL (0.0-0.6); Eosinophils % 2.5 %; Hematocrit 37.3 % (35.3-44.9); Hemoglobin 11.8 g/dL (11.5-15.4); Immature Granulocytes % 0.2 % (0-4); Lymphocytes # 2.1 K/mcL (0.6-4.6); Lymphocytes % 35.8 %; Mean Corpuscular HGB Conc 31.6 g/dL (31.6-35.5); Mean Corpuscular Hemoglobin 29.6 pg (28.0-33.3); Mean Corpuscular Volume 93.7 fL (83.0-100.0); Mean Platelet Volume 9.5 fL (9.4-12.4); Monocytes # 0.5 K/mcL (0.0-1.3); Monocytes % 8.4 %; Neutrophils # 3.1 K/mcL (1.6-8.9); Platelet Count 214 K/mcL (140-400); Red Blood Count 3.98 M/mcL (3.82-4.97); Red Cell Distribution Width 12.3 % (11.5-14.5); Segmented Neutrophils % 52.8 %; White Blood Count 5.9 K/mcL (4.3-11.1)
[2020-02-19] MEDS ORDERED: *HR* Heparin 5,000 UNIT/ML VIAL SQ SCH (06:00)
[2020-02-19 06:22] LABS: BUN/Creatinine Ratio 18 (6-26); Blood Urea Nitrogen 11 mg/dL (8-23); Calcium 8.8 mg/dL (8.6-10.3); Carbon Dioxide 31 mEq/L (23-29); Chloride 102 mEq/L (98-107); Glucose 131 mg/dL (70-105); Osmolality,Calculated 289 (280-300); Sodium 139 mEq/L (136-145); eGFR For African Americans > 60 (> 60); eGFR For Non-African Americans > 60 (> 60)
[2020-02-19] MEDS: Insulin LISPRO 300 UNITS/3 ML VIAL SQ SCH ×2 (07:17→12:41)
[2020-02-19 07:20] VITALS: BP 178/68
[2020-02-19] MEDS: lamoTRIgine 25 MG TABLET PO SCH (07:52)
[2020-02-19] MEDS: Gabapentin 400 MG CAPSULE PO SCH (07:53)
[2020-02-19] MEDS: carvediloL 6.25 MG TABLET PO SCH (07:54)
[2020-02-19] MEDS ORDERED: Aspirin 325 MG TABLET PO SCH (09:00)
[2020-02-19] MEDS ORDERED: amLODIPine 5 MG TABLET PO SCH (09:00)
[2020-02-19] MEDS ORDERED: Isosorbide MONOnitrate (24 HR) 30 MG TAB.ER.24H PO SCH (09:00)
[2020-02-19] MEDS ORDERED: Loratadine 10 MG TABLET PO SCH (09:00)
[2020-02-19] MEDS ORDERED: Furosemide 20 MG TABLET PO SCH (09:00)
== END 2020-02-19 14:17 | disposition home or self-care (01) ==
LOC: 3BNU 10:25 → EMEROOARM 10:25 → 3BNU 12:31
PROVIDERS: ADMIT Internal Medicine; ATTEND Internal Medicine